=== PATIENT | male | born 1955 | race Caucasian/White ===

== ENCOUNTER 2018-08-26 12:21 | Inpatient (IN) | payer MEDICARE, OTHER ==
[~2018-08-26 12:21] MED LIST: Prevnar 13-Val Conj/PF 0.5 ML SYRINGE IM ONE
[2018-08-26 13:21] LABS: #Basophils 0.1 thou/uL (0.0-0.2); #Eosinphils 0.1 thou/uL (0.0-0.7); #Lymphocytes 1.1 thou/uL (1.20-3.40); #Monocytes 0.8 thou/uL (0.11-0.59); #Neutrophils 8.7 thou/uL (1.40-6.50); %Basophils 0.7 % (0.0-1.0); %Eosinophils 0.8 % (0.0-10.0); %Lymphocytes 10.1 % (21.0-51.0); %Monocytes 7.3 % (0.0-10.0); %Neutrophils 81.1 % (42.0-75.0); Hemoglobin 15.4 g/dL (14.0-18.0); Mean Corpuscular Hemoglobin 31.7 pg (27.0-31.0); Mean Corpuscular Volume 99.1 fL (78.0-98.0); Platelet Count 161 thou/uL (130-400); RBC Distribution Width 12.6 % (11.5-14.5); Red Blood Cell (RBC) Count 4.86 mill/uL (4.70-6.10); White Blood Cell (WBC) Count 10.8 thou/uL (4.8-10.8)
--- NOTE | 2018-08-26 13:43 | RAD ---
PORTABLE UPRIGHT FRONTAL CHEST RADIOGRAPH: Date: 08-26-18 History: Tachycardia. Atrial fibrillation. Chest pressure. FINDINGS: There is mild pulmonary vascular prominence. Cardiac silhouette is enlarged which could signify cardi omegaly or magnification. No pneumothorax, lobar consolidation, or alveolar edema. IMPRESSION: Prominent cardiac silhouette with no focal consolidation or alveolar edema. POS: [facility]
[2018-08-26 13:50] LABS: AST (SGOT) 45 U/L (5-34); Albumin 3.9 g/dL (3.4-4.8); Alkaline Phosphatase 56 U/L (40-150); Anion Gap 16 mmol/L (10-20); BUN (Urea Nitrogen) 18 mg/dL (8.4-25.7); Bilirubin, Total 1.2 mg/dL (0.2-1.2); Calc. Creatinine Clearance 0 mL/min (70-130); Calcium 8.9 mg/dL (7.8-10.44); Carbon Dioxide 17 mmol/L (23-31); Chloride 109 mmol/L (98-107); Estimated GFR-MDRD 64; Globulin 2.9 g/dL (2.4-3.5); Glucose 94 mg/dL (80-115); Protein, Total 6.8 g/dL (5.8-8.1); Sodium 137 mmol/L (136-145)
[2018-08-26] MEDS ORDERED: Furosemide 40 MG/4 ML VIAL ONE (13:57)
[2018-08-26 14:11] LABS: ALT (SGPT) 36 U/L (8-55)
[2018-08-26 17:13] LABS: Troponin I 0.031 ng/mL (< 0.028)
[2018-08-26] MEDS ORDERED: Diltiazem 125 MG in Sodium Chloride 0.9% 100 ML IVPB SCH (18:15)
[2018-08-26] MEDS ORDERED: Acetaminophen 325 MG TAB PO PRN (18:43)
[2018-08-26] MEDS ORDERED: Ondansetron PF 4 MG/2 ML Vial IVP PRN (18:43)
[2018-08-26] MEDS ORDERED: Ondansetron ODT 4 MG TAB PO PRN (18:43)
[2018-08-26 19:08] VITALS: BMI 33.4
[2018-08-26] MEDS: Famotidine 20 MG TAB PO SCH (20:39)
[2018-08-26] MEDS: Sotalol HCl 80 MG TAB PO SCH (20:39)
[2018-08-26] MEDS: Apixaban 5 MG TAB PO SCH (20:39)
--- NOTE | 2018-08-27 00:35 | HP ---
PRIMARY CARE PHYSICIAN: Dr. Barahona. CHIEF COMPLAINT: Atrial fibrillation with RVR, palpitations. HISTORY OF PRESENT ILLNESS: Mr. Rosario is a pleasant 63-year-old male with past medical history of chronic atrial fibrillation, CHF, hypertension, and hyperlipidemia, who had presented to [facility] earlier today with some complaints of palpitations that have been going on over the last 2 months. He states symptoms worsened over the last 2 to 3 weeks once he had experienced more of an upper respiratory infection like symptoms, which included cough and shortness of breath. His shortness of breath worsened with exercise and activity that had resolved with rest. He states that he sees a interactive media designer from , he states he has had 3 cardioversions in the past that has seemed successful, but then he would later revert to atrial fibrillation. 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 Currently, the patient denies any chest pain, shortness of breath, abdominal pain, nausea, or vomiting. No headache or dizziness. He was noticed with rates in the 160s on the monitor. In the emergency department, he was given 20 mg IV diltiazem, 40 mg IV Lasix, and a nebulizer DuoNeb treatment. His heart rate continued to rise in the 150s to 160s. It was at that time that it was determined the patient would be admitted under observation. Cardiology Services will be consulted. He will receive another dose of IV diltiazem and placed on diltiazem drip. REVIEW OF SYSTEMS: All other systems reviewed and found to be negative unless mentioned in the HPI. PAST MEDICAL HISTORY: Chronic atrial fibrillation, CHF, hypertension, and hyperlipidemia. PAST SURGICAL HISTORY: Left knee surgery, inguinal hernia repair, left shoulder surgery for rotator cuff tear repair. PSYCHIATRIC HISTORY: Denies any psychiatric history at this time. SOCIAL HISTORY: The patient states that he drinks socially, however, has not had a drink in over 2 weeks. He denies any tobacco or illicit drug use. KNOWN ALLERGIES: Codeine. CURRENT HOME MEDICATIONS: 1. Lisinopril 40 mg oral once daily. 2. Eliquis 5 mg twice daily. 3. Aspirin 81 mg daily. 4. Lasix 40 mg once daily. 5. Sotalol 80 mg twice daily. PHYSICAL EXAMINATION: VITAL SIGNS: Blood pressure 135/76, pulse 120, respirations 18, temperature 98.9 degrees Fahrenheit, O2 saturations 96% on room air. GENERAL: The patient is awake, alert, and oriented x3. No acute distress noted. HEENT: Atraumatic and normocephalic. Pupils are round and reactive to light. Extraocular muscles are intact. Moist mucous membranes noted. NECK: Soft and supple. No JVD noted. CARDIOVASCULAR: Positive S1 and S2. Irregularly irregular. No murmur auscultated. RESPIRATORY: Clear to auscultation bilaterally. No wheezes, rales, or rhonchi. ABDOMEN: Soft and nontender. Bowel sounds present. MUSCULOSKELETAL: Strength 5+ bilaterally in upper and lower extremities. Moves all extremities equal. No edema noted. NEUROLOGIC: Cranial nerves 2 through 12 grossly intact. No focal deficits noted. Strength 5+ bilaterally. Gait, not assessed. PSYCHIATRIC: Good mood and affect. LABORATORY DATA: WBC 10.8, RBC 4.86, hemoglobin 15.4, platelet 161. Sodium 137, potassium 5.0, anion gap 16, creatinine 1.15, estimated GFR 64. Troponin 0.024, 0.031. BNP 1527.9. DIAGNOSTIC IMAGING: Portable chest x-ray showed prominent cardiac silhouette with no focal consolidation or alveolar edema. ASSESSMENT AND PLAN: 1. Atrial fibrillation with rapid ventricular response. The patient will be given second dose of IV diltiazem 35 mg and he will be placed on diltiazem drip set at 10 mg an hour, Cardiology Services will be consulted for further evaluation. He will remain on his home medications at this time and also remain on telemetry. 2. History of congestive heart failure, this is unknown as if this is systolic or diastolic heart failure, he will remain on home medications at this time and we will attempt to seek obtaining his records from . He may require further diagnostic testing including echocardiogram during this hospital visit. 3. Hypertension, currently stable at this time. He will remain on his home regimen. 4. Hyperlipidemia, currently stable. We will check lipid panel in the morning. 5. Deep venous thrombosis and gastrointestinal prophylaxis. 6. Code status, full code. DISPOSITION: Pending further workup and clinical findings. Job ID: [id number]
[2018-08-27 05:35] LABS: #Eosinphils 0.2 thou/uL (0.0-0.7); #Lymphocytes 1.3 thou/uL (1.20-3.40); #Neutrophils 6.4 thou/uL (1.40-6.50); %Basophils 0.3 % (0.0-1.0); %Eosinophils 2.1 % (0.0-10.0); %Lymphocytes 14.5 % (21.0-51.0); %Monocytes 11.3 % (0.0-10.0); %Neutrophils 71.8 % (42.0-75.0); Hemoglobin 14.8 g/dL (14.0-18.0); Mean Corpuscular HGB CONC 32.4 g/dL (32.0-36.0); Mean Corpuscular Hemoglobin 31.9 pg (27.0-31.0); Mean Corpuscular Volume 98.2 fL (78.0-98.0); Mean Platelet Volume 9.5 fL (7.4-10.4); Platelet Count 161 thou/uL (130-400); RBC Distribution Width 12.7 % (11.5-14.5); Red Blood Cell (RBC) Count 4.66 mill/uL (4.70-6.10); White Blood Cell (WBC) Count 8.9 thou/uL (4.8-10.8)
[2018-08-27 05:56] LABS: Anion Gap 14 mmol/L (10-20); BUN (Urea Nitrogen) 19 mg/dL (8.4-25.7); Calc. Creatinine Clearance 80 mL/min (70-130); Calcium 8.9 mg/dL (7.8-10.44); Carbon Dioxide 23 mmol/L (23-31); Chloride 105 mmol/L (98-107); Estimated GFR-MDRD 55; Glucose 110 mg/dL (80-115); Potassium 3.9 mmol/L (3.5-5.1); Sodium 138 mmol/L (136-145)
[2018-08-27] MEDS ORDERED: Furosemide 40 MG TAB PO SCH (07:30)
[2018-08-27] MEDS: Apixaban 5 MG TAB PO SCH ×2 (07:58→20:10)
[2018-08-27] MEDS: Sotalol HCl 80 MG TAB PO SCH (07:58)
[2018-08-27] MEDS: Famotidine 20 MG TAB PO SCH ×2 (07:59→20:11)
[2018-08-27] MEDS ORDERED: Aspirin 81 mg Enteric Coated Tablet PO SCH (09:00)
--- NOTE | 2018-08-27 10:37 | PDOC.PN ---
- Subjective Encounter Start Date: 08/27/18 Encounter Start Time: 09:00 Subjective: Reports cough, wheezing, reports cough x1 month after burning brush -: Denies chest pain or palpations -: Patient examined this am - Objective Resuscitation Status - Order Detail: 08/26/18 18:43 Resuscitation Status Routine Co-Sign Provider: Resuscitation Status: FULL: Full Resuscitation Vital Signs & Weight: Vital Signs (12 hours) Temp Pulse Resp BP BP Pulse Ox 08/27/18 08:05 98.1 F 98 16 121/83 93 L 08/27/18 04:04 98.3 F 83 22 H 119/72 92 L 08/26/18 23:18 70 20 97/65 95 08/26/18 23:13 70 20 98/61 97 08/26/18 23:10 74 20 88/56 L Weight Weight 99.819 kg I&O: 08/26/18 08/27/18 08/28/18 06:59 06:59 06:59 Intake Total 850 Balance 850 Result Diagrams: 08/27/18 05:15 08/27/18 05:15 Phys Exam - Physical Examination HEENT: PERRLA, moist MMs Neck: no nodes, no JVD Respiratory: wheezing present diffuse wheezing and rhonchi noted on auscultation Cardiovascular: irregular Gastrointestinal: soft, non-tender Musculoskeletal: pulses present Neurological: non-focal, normal sensation, moves all 4 limbs Lymphatic: no nodes Psychiatric: normal affect, A&O x 3 Skin: no rash, normal turgor, cap refill <2 seconds Dx/Plan (1) Atrial fibrillation with RVR Code(s): I48.91 - UNSPECIFIED ATRIAL FIBRILLATION Status: Acute (2) Hypertension Code(s): I10 - ESSENTIAL (PRIMARY) HYPERTENSION Status: Chronic (3) Hyperlipemia Code(s): E78.5 - HYPERLIPIDEMIA, UNSPECIFIED Status: Chronic (4) Heart failure Code(s): I50.9 - HEART FAILURE, UNSPECIFIED Status: Chronic (5) Wheezing on auscultation Code(s): R06.2 - WHEEZING Status: Acute - Plan cont current plan of care, respiratory therapy Patient with Afib, converted to controlled rate, drip stopped -: Duonebs ordered -: Cardiology consulted, Echo pending, -: Will recheck labs in AM, monitor breathing and VS * . Review of Systems - Review of Systems Gastrointestinal: Nausea, Vomiting, Abdominal Pain, Diarrhea, Melena - Medications/Allergies Allergies/Adverse Reactions: Allergies Allergy/AdvReac Type Severity Reaction Status Date / Time codeine Allergy Hives Verified 08/26/18 20:11 Medications: Current Medications Acetaminophen (Tylenol) 650 mg PO Q4H PRN PRN Reason: Headache/Fever/Mild Pain (1-3) Albuterol/Ipratropium (Duoneb) 3 ml NEB D4TC-OS PRN PRN Reason: SOB &/or Wheezing Albuterol/Ipratropium (Duoneb) 3 ml NEB [id number] [facility] Last Admin: 08/27/18 10:48 Dose: 3 ml Apixaban (Eliquis) 5 mg PO BID [facility] Last Admin: 08/27/18 07:58 Dose: 5 mg Aspirin (Ecotrin) 81 mg PO DAILY [facility] Last Admin: 08/27/18 07:58 Dose: 81 mg Famotidine (Pepcid) 20 mg PO BID [facility] Last Admin: 08/27/18 07:59 Dose: 20 mg Furosemide (Lasix) 40 mg PO DAILY-AC [facility] Last Admin: 08/27/18 07:58 Dose: 40 mg Diltiazem HCl 125 mg/ Sodium (Chloride) 125 mls @ 10 mls/hr IVPB INF [facility]; Protocol Last Admin: 08/26/18 20:05 Dose: 125 mls Ondansetron HCl (Zofran Odt) 4 mg PO Q6H PRN PRN Reason: Nausea/Vomiting Ondansetron HCl (Zofran) 4 mg IVP Q6H PRN PRN Reason: Nausea/Vomiting Sodium Chloride (Flush - Normal Saline) 10 ml IVF Q12HR [facility] Last Admin: 08/27/18 08:00 Dose: 10 ml Sodium Chloride (Flush - Normal Saline) 10 ml IVF PRN PRN PRN Reason: Saline Flush Sotalol HCl (Betapace) 80 mg PO BID [facility] Last Admin: 08/27/18 07:58 Dose: 80 mg
[2018-08-27] MEDS ORDERED: Furosemide 40 MG/4 ML VIAL SLOW IVP SCH ×2 (11:45→16:15)
[2018-08-27] MEDS ORDERED: PROPOFOL 20 ML ONE (13:01)
[2018-08-27] MEDS ORDERED: Spironolactone 25 MG TAB PO SCH (14:30)
--- NOTE | 2018-08-27 14:30 | PDOC.EVN ---
Event Note - Event Note Event Note: patient seen by DAPHNE Galvan with AF witth RVR, currently being seen by cardiology
[2018-08-27] MEDS ORDERED: Digoxin 0.5 MG/2 ML AMP ONE (15:03)
--- NOTE | 2018-08-27 16:12 | ECHO ---
63-year-old gentleman with paroxysmal atrial fibrillation. DESCRIPTION OF PROCEDURE: The patient was taken to the PACU. The patient was sedated by anesthesiology. A transesophageal probe was placed into the distal esophagus and stomach. Echocardiographic images were obtained. The transesophageal probe was removed. FINDINGS: 1. Severe decrease in left ventricular systolic function. 2. Biatrial enlargement. 3. The left ventricle is moderately dilated. 4. Mild mitral regurgitation. 5. Mild tricuspid regurgitation. 6. Pre- thrombus is noted in the left atrial appendage. 7. Atherosclerotic debris in the descending aorta. IMPRESSION: Pre-thrombus in the left atrial appendage. MTDD
[2018-08-27] MEDS ORDERED: Potassium Chloride 20 MEQ TAB PO SCH (16:15)
[2018-08-27] MEDS ORDERED: PROPOFOL 200 MG/20 ML VIAL ONE (16:23)
[2018-08-27] MEDS: Digoxin 0.5 MG/2 ML AMP SLOW IVP SCH ×2 (16:26→17:41)
--- NOTE | 2018-08-27 17:31 | CON ---
DATE OF CONSULTATION: HISTORY OF PRESENT ILLNESS: The patient is a pleasant 63-year-old gentleman with a history of atrial fibrillation, who presented with increasing dyspnea. The patient has a long history of atrial fibrillation. He states that he has previously undergone three electrical cardioversions. He has been on multiple different antiarrhythmic medications. The patient also states that approximately a few years ago, he underwent cardiac catheterization, and was found to have normal coronary arteries. The patient states that he recently has been under a lot of stress. He has been having increasing dyspnea. He denies having any chest discomfort. PAST MEDICAL HISTORY: 1. Paroxysmal atrial fibrillation 2. Hypertension. 3. Hyperlipidemia. PAST SURGICAL HISTORY: Shoulder surgery, knee surgery, and hernia surgery. surgery. SOCIAL HISTORY: The patient consumes excessive amounts of alcohol. Nonsmoker. ALLERGIES: CODEINE. MEDICATIONS: 1. Betapace 80 b.i.d. 2. Lasix 40 daily. 3. Aspirin 81 daily. 4. Eliquis 5 mg b.i.d. 5. Lisinopril 40 daily. REVIEW OF SYSTEMS: Ten-point system otherwise unremarkable. No history of easy bruising or bleeding bright red blood per rectum. PHYSICAL EXAMINATION: GENERAL: This is a well-developed gentleman in no acute distress. VITAL SIGNS: Blood pressure 121/83. NECK: No jugular venous distention. LUNGS: Diffuse wheezes throughout both lung phillips. HEART: Irregular rate and rhythm. Normal S1 and S2. No murmurs. ABDOMEN: Distended. EXTREMITIES: Showed no edema. VASCULAR: Radial pulses are 2+. NEUROLOGIC: Nonfocal. LABORATORY RESULTS: Sodium 138, potassium 3.9, chloride 105, bicarbonate 23, BUN 19, creatinine 1.3, glucose is 55. Troponin 0.04. White blood cell count 8.9, hemoglobin 14.8, hematocrit 45.7, and platelets were 161. His EKG revealed atrial fibrillation with a rapid ventricular response and poor R-wave progression. IMPRESSION: 1. Paroxysmal atrial fibrillation. 2. Ethanol abuse. 3. History of normal coronary arteries. 4. Obesity. This gentleman presents with recurrent atrial fibrillation. I would recommend the patient undergo a FELIPE cardioversion to convert back to normal sinus rhythm. The patient apparently has been on multiple antiarrhythmic drugs and has not been able to maintain sinus rhythm. We will recommend EP consultation for possible evaluation for outpatient ablation. We will follow this patient with you through his hospitalization. Job ID: [id number] DIANNE
[2018-08-27] MEDS ORDERED: Digoxin 0.25 MG TAB PO SCH (19:30)
[2018-08-27] MEDS ORDERED: Sacubitril 24.5 MG/Valsartan 25.5 MG TABLET PO SCH (21:00)
[2018-08-28 05:21] LABS: #Eosinphils 0.3 thou/uL (0.0-0.7); #Lymphocytes 0.9 thou/uL (1.20-3.40); #Monocytes 0.9 thou/uL (0.11-0.59); #Neutrophils 4.4 thou/uL (1.40-6.50); %Basophils 0.4 % (0.0-1.0); %Eosinophils 4.7 % (0.0-10.0); %Lymphocytes 13.8 % (21.0-51.0); %Monocytes 13.8 % (0.0-10.0); %Neutrophils 67.2 % (42.0-75.0); Hemoglobin 16.9 g/dL (14.0-18.0); Mean Corpuscular HGB CONC 32.2 g/dL (32.0-36.0); Mean Corpuscular Hemoglobin 31.6 pg (27.0-31.0); Mean Corpuscular Volume 98.2 fL (78.0-98.0); Mean Platelet Volume 8.4 fL (7.4-10.4); Platelet Count 148 thou/uL (130-400); RBC Distribution Width 12.5 % (11.5-14.5); Red Blood Cell (RBC) Count 5.34 mill/uL (4.70-6.10); White Blood Cell (WBC) Count 6.6 thou/uL (4.8-10.8)
[2018-08-28] MEDS: Furosemide 40 MG/4 ML VIAL SLOW IVP SCH ×2 (05:48→15:27)
[2018-08-28 05:49] LABS: Anion Gap 12 mmol/L (10-20); BUN (Urea Nitrogen) 16 mg/dL (8.4-25.7); Calc. Creatinine Clearance 111 mL/min (70-130); Calcium 8.5 mg/dL (7.8-10.44); Carbon Dioxide 25 mmol/L (23-31); Chloride 104 mmol/L (98-107); Estimated GFR-MDRD 84; Glucose 99 mg/dL (80-115); Potassium 4.2 mmol/L (3.5-5.1); Sodium 137 mmol/L (136-145)
[2018-08-28] MEDS ORDERED: Sacubitril 24.5 MG/Valsartan 25.5 MG TABLET PO SCH ×3 (08:50→09:30)
[2018-08-28] MEDS: Famotidine 20 MG TAB PO SCH ×2 (10:18→21:18)
[2018-08-28] MEDS: Spironolactone 25 MG TAB PO SCH (10:18)
[2018-08-28] MEDS: Sacubitril 49 MG/Valsartan 51 MG TABLET PO SCH ×2 (10:18→21:20)
[2018-08-28] MEDS: Digoxin 0.25 MG TAB PO SCH (10:18)
[2018-08-28] MEDS: Potassium Chloride 20 MEQ TAB PO SCH (10:18)
[2018-08-28] MEDS: Apixaban 5 MG TAB PO SCH ×2 (10:18→21:18)
[2018-08-28 10:48] LABS: Hemoglobin 18.4 g/dL (14.0-18.0); Platelet Count 177 thou/uL (130-400)
--- NOTE | 2018-08-28 11:49 | CON ---
DATE OF CONSULTATION: REASON FOR CONSULTATION: Atrial fibrillation. HISTORY OF PRESENT ILLNESS: A 63-year-old gentleman with a known history of atrial fibrillation. He is followed by Dr. Anglin, although has not been since 2016. There is some report that he may have had an ablation; however, we are unable to confirm this. The patient has a history of atrial fibrillation and has been treated with antiarrhythmic drug therapy. He has last been on sotalol. He reports that he has been in atrial fibrillation now for several months. It is not entirely clear a compliant use with his blood thinner, also there are some significant questions about his compliance. He came to the hospital with dyspnea and increasing dyspnea and was found to be in atrial fibrillation with rapid ventricular response. His sotalol was reinitiated and he was set to have a transesophageal ultrasound as well as a cardioversion; however, left atrial thrombus was detected on FELIPE and cardioversion was aborted. He is therefore rate controlled and anticoagulated. PAST MEDICAL HISTORY: Significant for atrial fibrillation, hypertension, hyperlipidemia. PAST SURGICAL HISTORY: He has had shoulder surgery, knee surgery, hernia surgery. SOCIAL HISTORY: He consumes excessive amounts of alcohol. He is nonsmoker. ALLERGIES: ALLERGIC TO CODEINE. MEDICATIONS ON ADMISSION: Include: 1. Betapace. 2. Lasix. 3. Aspirin. 4. Eliquis. 5. Lisinopril. REVIEW OF SYSTEMS: Comprehensive review of systems otherwise unremarkable, particularly no fever, chills, nausea, vomiting, diarrhea, blood in the urine, blood in stool, abdominal discomfort, chest discomfort, ataxia, depression, anxiety, change in hearing, changes in vision or smell. PHYSICAL EXAMINATION: GENERAL: He is comfortable, in no acute distress. VITAL SIGNS: Blood pressure 139/84, heart rate is 83 and irregular. NECK: Reveals no JVD. HEART: Irregularly irregular. Normal S1 and S2. LUNGS: Clear to auscultation. ABDOMEN: Soft, nontender. EXTREMITIES: Reveal no clubbing, cyanosis, or edema. LABORATORY DATA: A 12-lead ECG done on 26 August shows him to be in atrial fibrillation with ventricular rate of 116 beats per minute with nonspecific ST and T wave abnormalities. IMPRESSION: 1. Persistent atrial fibrillation. 2. Left atrial thrombus. 3. Medical noncompliance. RECOMMENDATIONS: At this point, because Mr. Rosario has left atrial thrombus. We were very limited in what we can do for him. At this point, re-initiation of anticoagulation and treatment with rate control agents would be the best. We will have him follow up with physiology for hopefully repeat FELIPE in about 1 to 2 months to re-evaluate the thrombus. I discussed this with Mr. Rosario and suggested strongly that he not skip or miss any doses and suggested if he does not have medications, we will find solution for that. Ultimately, once the left atrial thrombus has resolved, reasonable options would include radiofrequency ablation for atrial fibrillation and potentially even a Watchman device for left atrial appendage occlusion to prevent thrombus formation. We will arrange for followup in the near future. Many thanks for the opportunity to participate in the care of this patient. Please do not hesitate to contact me for any questions. Job ID: [id number]
--- NOTE | 2018-08-28 12:48 | PQF ---
CLINICAL DOCUMENTATION IMPROVEMENT CLARIFICATION FORM: ICD-10 Updated PLEASE DO AN ADDENDUM TO THE PROGRESS NOTE WITH ANY DOCUMENTATION UPDATES OR ADDITIONS AND CARRY THROUGH TO DC SUMMARY. THANK YOU. DATE: 08/28/18 ATTN: DR. VENTURA Please exercise your independent, professional judgment in responding to the clarification form. Clinical indicators are provided on the bottom of this form for your review Please check appropriate box(s): HEART FAILURE: A. TYPE: [ x ] Systolic / HFrEF [ ] Diastolic / HFpEF [ ] Combined Systolic / Diastolic B. ACUITY [ ] Acute [ x ] Acute on Chronic [ ] Chronic [ ] Other diagnosis [ ] Unable to determine In addition, please specify: Present on Admission (POA): [ x ] Yes [ ] No [ ] Unable to determine For continuity of documentation, please document condition throughout progress notes and discharge summary. Thank You. CLINICAL INDICATORS - SIGNS / SYMPTOMS / LABS PROGRESS NOTE : "HEART FAILURE" PULSE 135 RR 26 BNP 1527.9 ECHO REPORT: "SEVERE DECREASE I LEFT VENTRICULAR SYSTOLIC FUNCTION" "BILATERAL ENLARGEMENT" "THE LEFT VENTRICLE IS MODERATELY DILATED" "MILD MITRAL REGURGITATION" "MILD TRICUSPID REGURGITATION" "FREE THROMBUS IS NOTED IN THE LEFT ATRIAL APPENDAGE" "ATHEROSCLEROTIC DEBRIS IN THE DESCENDING AORTA" RISKS: H/O CHF AFIB TREATMENT: IV LASIX (ER-PRESENT) COREG (STARTED 08/28) ENTRESTO (08/27-PRESENT) CARDIAC MONITORING ECHOCARDIOGRAM (This form is maintained as a part of the permanent medical record) 2014 [email or web address]. All Rights Reserved [email or web address] Office: [phone] [facility] HOSPITALVirgil
[2018-08-28] MEDS: Carvedilol 3.125 MG TAB PO SCH (17:39)
--- NOTE | 2018-08-28 23:06 | PDOC.PN ---
- Subjective Encounter Start Date: 08/28/18 Encounter Start Time: 08:40 Feels ok. Eager to go home. - Objective Resuscitation Status - Order Detail: 08/26/18 18:43 Resuscitation Status Routine Co-Sign Provider: Resuscitation Status: FULL: Full Resuscitation Vital Signs & Weight: Vital Signs (12 hours) Temp Pulse Resp BP Pulse Ox 08/28/18 22:48 90 14 94 L 08/28/18 21:09 95 08/28/18 19:19 97.9 F 91 20 127/96 H 95 08/28/18 18:49 51 L 16 95 08/28/18 16:14 72 20 08/28/18 15:25 97.5 F L 74 20 146/101 H 95 08/28/18 11:37 97.2 F L 97 20 151/85 H 93 L 08/28/18 11:18 88 24 H Weight Weight 213 lb 11.2 oz I&O: 08/27/18 08/28/18 08/29/18 06:59 06:59 06:59 Intake Total 850 1450 500 Output Total 3920 2350 Balance 850 -2470 -1850 Result Diagrams: 08/28/18 10:26 08/28/18 10:26 Phys Exam - Physical Examination Constitutional: NAD Respiratory: no wheezing, no rales, no rhonchi Cardiovascular: no significant murmur, irregular Gastrointestinal: soft, non-tender, no distention, positive bowel sounds Musculoskeletal: no edema Dx/Plan (1) Atrial fibrillation with RVR Code(s): I48.91 - UNSPECIFIED ATRIAL FIBRILLATION Status: Acute (2) Heart failure Code(s): I50.9 - HEART FAILURE, UNSPECIFIED Status: Chronic (3) Hyperlipemia Code(s): E78.5 - HYPERLIPIDEMIA, UNSPECIFIED Status: Chronic (4) Hypertension Code(s): I10 - ESSENTIAL (PRIMARY) HYPERTENSION Status: Chronic - Plan * Reviewed record. FELIPE showed a left atrial thrombus. * Discussed with VIJAY HOPKINS with discharge on anticoagulation with follow up in six weeks. * FELIPE revealed depressed LVF. Apparently the EF is around 20% and a LifeVest has been recommended.
[2018-08-29] MEDS: Furosemide 40 MG/4 ML VIAL SLOW IVP SCH ×2 (06:05→13:49)
[2018-08-29 07:28] VITALS: TEMP 98
[2018-08-29] MEDS: Digoxin 0.25 MG TAB PO SCH (08:17)
[2018-08-29] MEDS: Sacubitril 49 MG/Valsartan 51 MG TABLET PO SCH (08:17)
[2018-08-29] MEDS: Apixaban 5 MG TAB PO SCH (08:17)
[2018-08-29] MEDS: Spironolactone 25 MG TAB PO SCH (08:18)
[2018-08-29] MEDS: Carvedilol 3.125 MG TAB PO SCH (08:18)
[2018-08-29] MEDS: Famotidine 20 MG TAB PO SCH (08:18)
[2018-08-29] MEDS: Potassium Chloride 20 MEQ TAB PO SCH (08:18)
[2018-08-29 11:36] VITALS: BP 144/69
--- NOTE | 2018-08-29 16:07 | DIS ---
DATE OF ADMISSION: 08/27/2018 DATE OF DISCHARGE: 08/29/2018 DISCHARGE DISPOSITION: Home. FOLLOWUP: 1. Follow up with primary care physician, Dr. Barahona in 1 week. 2. Follow up with Dr. Guanako Saucedo as well as Electrophysiology, Dr. Moise in 1 to 2 weeks. ALLERGIES: THE PATIENT IS ALLERGIC TO CODEINE. BASIC METABOLIC PROFILE IN 1 TO 2 WEEKS IS RECOMMENDED. PRIMARY CARE PHYSICIAN ADVISED TO FOLLOW. DIGOXIN LEVEL IN 2 WEEKS. THE PATIENT WAS SEEN AND EXAMINED ON THE DAY OF DISCHARGE. DENIES ANY NEW COMPLAINTS. NO CHEST PAIN, SHORTNESS OF BREATH, OR PALPITATIONS REPORTED. DISCHARGE MEDICATIONS: 1. Aspirin 81 mg daily. 2. Eliquis 5 mg b.i.d. 3. Carvedilol 3.125 mg b.i.d. 4. Digoxin 0.25 mg b.i.d. 5. Lasix 40 mg daily as needed for weight gain more than 2 pounds. 6. Entresto 49/51 one tablet b.i.d. 7. Aldactone 25 mg daily. 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 Guanako Saucedo and Electrophysiology service. BRIEF HOSPITAL COURSE: The patient is a 63-year-old male, who presented to the emergency room with palpitations. His workup was consistent with atrial fibrillation with rapid ventricular response. He was started on Cardizem drip. Anticoagulation was also continued. The patient was seen by Electrophysiology as well as Cardiology Service. A transesophageal echocardiogram was done that showed pre-thrombus noted in the left atrial appendage. For this reason, cardioversion was not performed. He will continue anticoagulation with Eliquis. Digoxin, Entresto, and Aldactone were added to his regimen. He was also placed on IV diuretics, which has been changed to p.r.n. He appears stable for discharge. He understands the risks associated with anticoagulation. He was also advised to be compliant with all of his medications. FINAL DIAGNOSES: 1. Atrial fibrillation with rapid ventricular response. 2. Acute on chronic systolic heart failure exacerbation secondary to #1. ACC stage C. 3. Elevated troponin secondary to demand ischemia. 4. Obesity with a BMI of 32.5. 5. Left atrial thrombus, on anticoagulation. 6. Medication noncompliance. 7. Codeine allergy. 8. Hypertension. 9. Hyperlipidemia. 10. Chronic kidney disease, stage 2. PLAN: Plan of care was discussed with the patient in detail. He stated understanding. Job ID: [id number] MTDD
== END 2018-08-29 15:15 | disposition home or self-care (01) | DRG 308 ==
LOC: ERS 12:21 → 2SW 14:23 → OBSVTOIN 08-27 10:07 → 2NO 08-28 20:57
PROVIDERS: ADMIT Internal Medicine; ATTEND Internal Medicine
PROC: B24BZZ4 Ultrasonography of Heart with Aorta, Transesophageal (ICD-10-PCS; principal; 2018-08-27)
DX: I48.1 Persistent atrial fibrillation (principal); I50.23 Acute on chronic systolic (congestive) heart failure; I13.0 Hypertensive heart and chronic kidney disease with heart failure and stage 1 through stage 4 chronic kidney disease, or unspecified chronic kidney disease; I24.8 Other forms of acute ischemic heart disease; I51.3 Intracardiac thrombosis, not elsewhere classified; N18.2 Chronic kidney disease, stage 2 (mild); E78.5 Hyperlipidemia, unspecified; R06.2 Wheezing; E66.9 Obesity, unspecified; Z91.14 Patient's other noncompliance with medication regimen; Z79.01 Long term (current) use of anticoagulants; Z79.82 Long term (current) use of aspirin; Z88.6 Allergy status to analgesic agent; Z68.32 Body mass index [BMI] 32.0-32.9, adult
CPT/HCPCS: 36415; 71045; 80048; 80053; 83880; 84484; 85025; 92960; 93005; 93312; 94640; 96374; 96375; J1160; J1940; J2704; J3490; J7050; J7620

== ENCOUNTER 2019-03-22 11:53 | Inpatient (IN) | payer MEDICARE, OTHER ==
--- NOTE | 2019-03-22 12:18 | RAD ---
PA AND LATERAL CHEST: Date: 03/22/19 HISTORY: Atrial fibrillation. COMPARISON: 08/26/18 exam. FINDINGS: Heart size is enlarged with atherosclerotic changes of aorta. Lungs are clear of infiltrates. Old rig ht rib fractures seen. IMPRESSION: Cardiomegaly. No signs of failure. POS: [facility]
[2019-03-22 12:51] LABS: #Basophils 0.1 thou/uL (0.0-0.2); #Lymphocytes 1.6 thou/uL (1.20-3.40); #Monocytes 0.9 thou/uL (0.11-0.59); #Neutrophils 7.1 thou/uL (1.40-6.50); %Basophils 0.5 % (0.0-1.0); %Eosinophils 0.3 % (0.0-10.0); %Lymphocytes 16.4 % (21.0-51.0); %Monocytes 9.5 % (0.0-10.0); %Neutrophils 73.3 % (42.0-75.0); Hemoglobin 16.8 g/dL (14.0-18.0); Mean Corpuscular HGB CONC 32.9 g/dL (32.0-36.0); Mean Corpuscular Volume 97.3 fL (78.0-98.0); Mean Platelet Volume 8.4 fL (7.4-10.4); Platelet Count 205 thou/uL (130-400); RBC Distribution Width 12.9 % (11.5-14.5); Red Blood Cell (RBC) Count 5.25 mill/uL (4.70-6.10); White Blood Cell (WBC) Count 9.7 thou/uL (4.8-10.8)
[2019-03-22] MEDS ORDERED: Diltiazem 125 MG/25 ML ONE (13:09)
[2019-03-22 13:18] LABS: ALT (SGPT) 58 U/L (8-55); AST (SGOT) 35 U/L (5-34); Albumin 4.2 g/dL (3.4-4.8); Alkaline Phosphatase 73 U/L (40-150); Anion Gap 15 mmol/L (10-20); BUN (Urea Nitrogen) 20 mg/dL (8.4-25.7); Bilirubin, Total 1.9 mg/dL (0.2-1.2); CK (CPK) 87 U/L (30-200); Calc. Creatinine Clearance 0 mL/min (70-130); Calcium 9.7 mg/dL (7.8-10.44); Carbon Dioxide 24 mmol/L (23-31); Chloride 104 mmol/L (98-107); Estimated GFR-MDRD 51; Globulin 1.9 g/dL (2.4-3.5); Glucose 109 mg/dL (80-115); Potassium 4.7 mmol/L (3.5-5.1); Protein, Total 6.1 g/dL (5.8-8.1); Sodium 138 mmol/L (136-145)
[2019-03-22] MEDS ORDERED: Diltiazem HCl 125 MG, Admixture Fee 1 EACH in Sodium Chloride 0.9% 100 ML IVPB SCH (13:30)
[2019-03-22] MEDS ORDERED: Furosemide 40 MG/4 ML VIAL ONE (14:03)
[2019-03-22] MEDS ORDERED: Aspirin Chewable 81 MG TAB ONE (14:52)
[2019-03-22 15:51] LABS: Troponin I 0.055 ng/mL (< 0.028)
[2019-03-22 18:32] LABS: Troponin I 0.044 ng/mL (< 0.028)
[2019-03-22] MEDS ORDERED: Aspirin 325 MG TAB PO SCH (21:00)
[2019-03-22 21:05] VITALS: BMI 33.5
[2019-03-22] MEDS ORDERED: Ondansetron ODT 4 MG TAB PO PRN (21:16)
[2019-03-22] MEDS ORDERED: hydrALAZINE 20 MG/ML VIAL SLOW IVP PRN (21:16)
[2019-03-22] MEDS ORDERED: Ondansetron PF 4 MG/2 ML Vial IVP PRN (21:16)
[2019-03-22] MEDS ORDERED: Furosemide 40 MG/4 ML VIAL SLOW IVP SCH (21:30)
[2019-03-22] MEDS ORDERED: Apixaban 5 MG TAB PO SCH (21:45)
[2019-03-22] MEDS ORDERED: Famotidine 20 MG TAB PO SCH (21:45)
[2019-03-22] MEDS: Acetaminophen 500 MG TAB PO PRN (21:45)
[2019-03-22] MEDS ORDERED: Sacubitril 49 MG/Valsartan 51 MG TABLET PO SCH (21:45)
[2019-03-22] MEDS: Diltiazem 125 MG in Sodium Chloride 0.9% 100 ML IVPB SCH (22:10)
--- NOTE | 2019-03-23 02:30 | HP ---
PRIMARY CARE PROVIDER: Dr. Michele Barahona of the [facility]. CHIEF COMPLAINT: General weakness, swelling, and irregular heartbeat. HISTORY OF PRESENT ILLNESS: This is a 63-year-old male who presents to [facility] after being sent to the emergency room by his primary care provider for atrial fibrillation with rapid ventricular response. The patient with a known history of prior atrial fibrillation, undergoing medical treatment including digoxin, Coreg, and anticoagulation with Eliquis. The patient states he underwent a transesophageal echocardiogram in preparation for cardioversion, however, was discovered with a left atrial thrombus in August 2018. Recommendations were to treat with rate control strategy in addition to anticoagulation and re-evaluate for possible radiofrequency ablation. The patient states he is continued on medical therapy since his last hospitalization at [facility] in August 2018, but admits to having a difficult work schedule without much downtime. The patient admits to increasing swelling of his lower extremities and abdomen, but is unable to quantitate weight gain. The patient states he has had difficulty walking short distances even up to 10 feet without becoming severely short of breath. The patient has had difficulty tying his shoes or putting on his clothes due to swelling and shortness of breath. The patient states he has been unable to lie flat or sleep for extended periods of time over the last several months. The patient denied any specific chest pain, but did admit to increased difficulty with deep breaths, but no specific fever. The patient denied prominent cough or productive sputum. The patient denied fever, chills, or exposure history. In the emergency room, the patient underwent general evaluation with EKG showing evidence of atrial fibrillation with rapid ventricular response with heart rates in the 130s. The patient received Lasix 40 mg IV x1 dose in addition to diltiazem 20 mg IV push followed by an infusion at 5 mg/hour. The patient also received DuoNeb therapy. Currently, the patient is chest pain free with mild shortness of breath, awaiting transfer to the telemetry unit. PAST MEDICAL HISTORY: 1. Atrial fibrillation with variable rate control, on chronic anticoagulation with Eliquis. 2. Left atrial thrombus. 3. Hypertension. 4. History of medication noncompliance. 5. Hyperlipidemia. PAST SURGICAL HISTORY: 1. Status post left knee surgery. 2. Status post hernia repair. 3. Status post shoulder repair. CURRENT MEDICATIONS: 1. Lasix 40 mg p.o. daily. 2. Lisinopril 40 mg p.o. daily. 3. Enteric-coated aspirin 81 mg p.o. daily. 4. Albuterol 90 mcg inhaled q.i.d. p.r.n. 5. Eliquis 5 mg p.o. b.i.d. 6. Carvedilol 12.5 mg p.o. b.i.d. 7. Digoxin 0.25 mg daily. 8. Diltiazem, unknown dose. 9. Spironolactone 25 mg p.o. daily. ALLERGIES: TO CODEINE. FAMILY HISTORY: Positive for hypertension. SOCIAL HISTORY: The patient is . Resides in the [place], [place] area. 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 Occasional alcohol use. No smoking or illicit drug use. REVIEW OF SYSTEMS: CONSTITUTIONAL: Negative for weight loss or gain, ability to conduct usual activities. SKIN: Negative for rash, itching. EYES: Negative for double vision, pain. ENT/MOUTH: Negative for nose bleeding, neck stiffness, pain, tenderness. CARDIOVASCULAR: Negative for palpitations, dyspnea on exertion, orthopnea. RESPIRATORY: Negative for shortness of breath, wheezing, cough, hemoptysis, fever or night sweats. GASTROINTESTINAL: Negative for poor appetite, abdominal pain, heartburn, nausea, vomiting, constipation, or diarrhea. GENITOURINARY: Negative for urgency, frequency, dysuria, nocturia. MUSCULOSKELETAL: Negative for pain, swelling. NEUROLOGIC/PSYCHIATRIC: Negative for anxiety, depression. ALLERGY/IMMUNOLOGIC: Negative for skin rash, bleeding tendency. Otherwise, negative except as stated per HPI. PHYSICAL EXAMINATION: VITAL SIGNS: On admission. Blood pressure 142/109, pulse 129, respiratory rate 20, temperature 97.5 degrees Fahrenheit, O2 saturation 98% on room air. GENERAL APPEARANCE: This is a 63-year-old male, alert and oriented x3, pleasant, in no acute distress. HEENT: Pupils are equal, round, reactive to light and accommodation. Extraocular muscles are intact. No scleral icterus. No conjunctival injection. Nares are patent. OP is clear. Teeth in fair repair. NECK: Supple. No cervical adenopathy. No thyromegaly. No carotid bruits. No JVD appreciated. Cervical spine with full active and passive range of motions. No meningeal signs noted. CHEST: Diminished breath sounds in the bases bilaterally with occasional bibasilar crackles. CARDIOVASCULAR: S1, S2 with irregular rate and rhythm. No murmur appreciated. ABDOMEN: Obese, soft with landmarks difficult to palpate due to patient's body habitus. No rebound or guarding noted. EXTREMITIES: Warm and dry with fair turgor. Pitting edema to the mid thigh region. Pulses are palpable distally at the dorsalis pedis, posterior tibial, and popliteal arteries bilaterally. Capillary refill is less than 2 seconds. NEUROLOGIC: Cranial nerves 2 through 12 are grossly intact. No focal or lateralizing signs appreciated. PERTINENT LAB AND X-RAY FINDINGS: Sodium 138, potassium 4.7, chloride 104, CO2 of 24, BUN 20, creatinine 1.39, estimated GFR 51, glucose 109, calcium 9.7, total bilirubin 1.9, AST 35, ALT of 58, alkaline phosphatase 73. Troponin I ranged between 0.024-0.055. BNP 3474, previously noted 1528 on 08/26/2018. CBC showed a white blood cell count of 9.7, hemoglobin 16.8, hematocrit 51, platelet count 205. Portable chest x-ray dated 03/22/2019, showed cardiomegaly without infiltrate. EKG dated 03/22/2019, by my interpretation shows atrial fibrillation with heart rates in the 130s. Attenuated R-waves in the precordial leads. Normal axis. ASSESSMENT AND PLAN: 1. Atrial fibrillation with rapid ventricular response. The patient will be admitted to the telemetry unit. We will continue Cardizem infusion at 10 mg/hour. Add digoxin 0.25 mg p.o. daily. Continue rate control strategy. Consult Cardiology and Electrophysiology Service in the a.m. The patient may be deemed an appropriate candidate for cardiac ablation. Continue Eliquis 5 mg b.i.d. Check 2D transthoracic echocardiogram for accurate ejection fraction. 2. Acute congestive heart failure. Exact type is unclear. We will check 2D transthoracic echocardiogram for accurate ejection fraction. Continue Lasix 40 mg IV b.i.d. Monitor daily weights and I's and O's. 3. Acute kidney injury on chronic kidney disease, stage 2. Avoid nephrotoxic agents and limit contrast exposure. Hold STEFANIE inhibitor. Repeat creatinine in the a.m. 4. Transaminitis. Suspect secondary to #2. We will repeat LFTs and monitor liver functions. 5. Demand ischemia of the myocardium. Secondary to #1. No current evidence to suggest acute coronary syndrome. Continue management as outlined in #1 and #2. 6. Hypertension. We will confirm home blood pressure regimen p.r.n. hydralazine. Resume home blood pressure regimen when confirmed. 7. Prophylaxis. SCDs while in bed. Pepcid 20 mg p.o. b.i.d. 8. Code status is full. Surrogate medical decision maker is the patient's spouse. Job ID: [id number]
[2019-03-23] MEDS: Acetaminophen 500 MG TAB PO PRN (03:50)
[2019-03-23 05:21] LABS: Band 1 % (5-11); Eosinophils 3 % (0-10); Hemoglobin 15.3 g/dL (14.0-18.0); Lymphocytes 28 % (21-51); MDiff Complete? YES; Mean Corpuscular HGB CONC 33.2 g/dL (32.0-36.0); Mean Corpuscular Hemoglobin 32.9 pg (27.0-31.0); Mean Platelet Volume 8.4 fL (7.4-10.4); Monocytes 11 % (0-10); Neutrophil 53 % (42-75); Platelet Count 189 thou/uL (130-400); Reactive Lymphocytes 4 % (0-10); Red Blood Cell (RBC) Count 4.66 mill/uL (4.70-6.10)
[2019-03-23] MEDS: Furosemide 40 MG/4 ML VIAL SLOW IVP SCH ×2 (05:25→14:20)
[2019-03-23 05:47] LABS: ALT (SGPT) 70 U/L (8-55); AST (SGOT) 59 U/L (5-34); Albumin 3.7 g/dL (3.4-4.8); Alkaline Phosphatase 64 U/L (40-150); Anion Gap 13 mmol/L (10-20); BUN (Urea Nitrogen) 20 mg/dL (8.4-25.7); Bilirubin, Total 1.4 mg/dL (0.2-1.2); Calc. Creatinine Clearance 87 mL/min (70-130); Calcium 8.7 mg/dL (7.8-10.44); Carbon Dioxide 23 mmol/L (23-31); Chloride 103 mmol/L (98-107); Estimated GFR-MDRD 59; Globulin 2.1 g/dL (2.4-3.5); Glucose 112 mg/dL (80-115); Magnesium 1.7 mg/dL (1.6-2.6); Potassium 3.4 mmol/L (3.5-5.1); Protein, Total 5.8 g/dL (5.8-8.1); Sodium 136 mmol/L (136-145)
[2019-03-23] MEDS ORDERED: Apixaban 5 MG TAB PO SCH (09:00)
[2019-03-23] MEDS ORDERED: Prevnar 13-Val Conj/PF 0.5 ML SYRINGE IM ONE (09:00)
[2019-03-23] MEDS: Famotidine 20 MG TAB PO SCH ×2 (09:47→21:00)
[2019-03-23] MEDS: Aspirin Chewable 81 MG TAB PO SCH (09:47)
[2019-03-23] MEDS: Digoxin 0.25 MG TAB PO SCH (09:47)
[2019-03-23] MEDS: Spironolactone 25 MG TAB PO SCH (09:48)
[2019-03-23] MEDS: Sacubitril 49 MG/Valsartan 51 MG TABLET PO SCH ×2 (09:48→20:57)
[2019-03-23] MEDS: Carvedilol 3.125 MG TAB PO SCH ×2 (09:48→16:45)
--- NOTE | 2019-03-23 11:18 | CON ---
DATE OF CONSULTATION: HISTORY OF PRESENT ILLNESS: The patient is a 63-year-old gentleman, who presents with increasing dyspnea. The patient has a history of nonischemic cardiomyopathy. He previously underwent a cardiac catheterization, which apparently revealed normal coronary arteries. He was seen in August 2018 with dyspnea. He was noted to be in rapid atrial fibrillation. He underwent a FELIPE, which revealed evidence of thrombus. The patient was placed on Eliquis. The patient states he has previously prior to this undergone several electrocardioversion. The patient presented with increasing dyspnea. He denied having any chest discomfort. PAST MEDICAL HISTORY: 1. Cardiomyopathy. 2. Atrial fibrillation. 3. Hypertension. 4. Dyslipidemia. PAST SURGICAL HISTORY: Knee surgery, shoulder surgery, hernia surgery. CURRENT MEDICATIONS: None. ALLERGIES: CODEINE. FAMILY HISTORY: No strong family history of CAD. SOCIAL HISTORY: Long history of ethanol abuse. PHYSICAL EXAMINATION: GENERAL: Well-developed gentleman in no acute distress. VITAL SIGNS: His blood pressure is 135/78. NECK: No jugular venous distention. LUNGS: Clear to auscultation. HEART: Irregular rate and rhythm. Normal S1 and S2. ABDOMEN: Distended. EXTREMITIES: Showed trace edema. VASCULAR: Radial pulses are 2+. LABORATORY DATA: Sodium 133, potassium 3.4, chloride 103, bicarbonate 23, BUN 20, creatinine 1.23. His AST is 59. Troponin 0.044. His white blood cell count 9.0, hemoglobin 15.3, hematocrit 46.2, platelets 189. IMAGING STUDIES: EKG atrial fibrillation with a rapid ventricular response. IMPRESSION: 1. Rapid atrial fibrillation. 2. History of severe cardiomyopathy. 3. History of left atrial thrombus. 4. Ethanol abuse. 5. History of normal coronary arteries. 6. Ethanol abuse. This gentleman presents with recurrent rapid atrial fibrillation. The patient is on appropriate cardiac medications. He had previously worn a LifeVest. We will ask EP to evaluate during this. We will recheck his echocardiogram and obtain EP consultation. We will consider electrical cardioversion. We will follow this patient with you through his hospitalization. Job ID: [id number] MTDD
[2019-03-23] MEDS: Diltiazem 125 MG in Sodium Chloride 0.9% 100 ML IVPB SCH (12:23)
--- NOTE | 2019-03-23 16:07 | PDOC.HOSPP ---
- Subjective Encounter Date: 03/23/19 Encounter Time: 16:00 Subjective: f/u for A-fib RVR on Cardizem gtt/Eliquis. Feels ok overall and SOB improved. Plan for CV per Cardiology recommendations. - Objective Vital Signs & Weight: Vital Signs (12 hours) Temp Pulse Resp BP Pulse Ox 03/23/19 15:32 97.4 F L 71 20 110/79 97 03/23/19 11:32 82 14 118/84 96 03/23/19 09:47 71 03/23/19 07:29 97.8 F 71 17 135/78 96 Weight Weight 228 lb 9.6 oz I&O: 03/22/19 03/23/19 03/24/19 06:59 06:59 06:59 Intake Total 960 Output Total 800 Balance 160 Result Diagrams: 03/23/19 04:20 03/23/19 04:20 Additional Labs: Laboratory Tests 03/22/19 03/22/19 03/23/19 12:24 12:28 04:20 Total Bilirubin 1.9 H 1.4 H AST 35 H 59 H ALT 58 H 70 H B-Natriuretic Peptide 3474.3 H TSH 3rd Generation 03/23/19 03/23/19 04:20 04:20 Total Bilirubin AST ALT B-Natriuretic Peptide 2116.2 H TSH 3rd Generation 4.0338 Radiology Reviewed by me: Yes (2D echo - pending) EKG Reviewed by me: Yes (Tele - A-fib in 80's) Hospitalist ROS - Medication Medications: Active Medications Generic Name Dose Route Start Last Admin Trade Name Freq PRN Reason Stop Dose Admin Acetaminophen 1,000 mg 03/22/19 21:16 03/23/19 03:50 Tylenol PO 1,000 mg Q6H PRN Administration Mild Pain (1-3) Apixaban 5 mg 03/23/19 09:00 03/23/19 09:47 Eliquis PO 5 mg BID HALINA Administration Aspirin 81 mg 03/23/19 09:00 03/23/19 09:47 Aspirin Chewable PO 81 mg DAILY HALINA Administration Carvedilol 3.125 mg 03/23/19 08:00 03/23/19 09:48 Coreg PO 3.125 mg BID-WM HALINA Administration Digoxin 0.25 mg 03/23/19 09:00 03/23/19 09:47 Lanoxin PO 0.25 mg QAM HALINA Administration Famotidine 20 mg 03/23/19 09:00 03/23/19 09:47 Pepcid PO 20 mg BID HALINA Administration Furosemide 40 mg 03/23/19 06:00 03/23/19 14:20 Lasix SLOW IVP 40 mg 0600,1400 HALINA Administration Diltiazem HCl 125 mg/ Sodium 125 mls @ 10 mls/hr 03/22/19 21:16 03/23/19 12: 23 Chloride IVPB 125 mls INF HALINA Administration Protocol 10 MG/HR Sacubitril/Valsartan 1 tab 03/23/19 09:00 03/23/19 09:48 Entresto 49 Mg-51 Mg Tablet PO 1 tab BID HALINA Administration Spironolactone 12.5 mg 03/23/19 09:00 03/23/19 09:48 Aldactone PO 12.5 mg DAILY HALINA Administration - Exam General Appearance: NAD, awake alert Eye: PERRL, anicteric sclera ENT: normocephalic atraumatic, no oropharyngeal lesions Neck: supple, symmetric, no JVD, no thyromegaly, no lymphadenopathy Heart: no gallops, no rubs, normal peripheral pulses, irregular Respiratory: CTAB, no wheezes, no rales, no ronchi, normal chest expansion Gastrointestinal: soft, non-tender, non-distended, normal bowel sounds Extremities: no cyanosis, no clubbing Extremities - other findings: mild edema of LE's Skin: normal turgor, no lesions Neurological: cranial nerve grossly intact, no focal deficits, no new deficit Musculoskeletal: normal tone, normal strength Psychiatric: normal affect, A&O x 3 Hosp A/P (1) Acute systolic CHF (congestive heart failure) Code(s): I50.21 - ACUTE SYSTOLIC (CONGESTIVE) HEART FAILURE Status: Acute Plan: Improved with IV Lasix, 2D echo pending, continue Entresto, Coreg, ASA, Aldactone (2) Transaminitis Code(s): R74.0 - NONSPEC ELEV OF LEVELS OF TRANSAMNS & LACTIC ACID DEHYDRGNSE Status: Acute Plan: ? subacute related to volume overload with component of ETOH-induced hepatitis, check B12/Folate, Hep A/B/C panel (3) Atrial fibrillation with RVR Code(s): I48.91 - UNSPECIFIED ATRIAL FIBRILLATION Status: Acute Plan: Rate improved on Cardizem gtt/Digoxin, plan for cardioversion, continue Eliquis and Coreg (4) Demand ischemia of myocardium Code(s): I24.8 - OTHER FORMS OF ACUTE ISCHEMIC HEART DISEASE Status: Acute Plan: Secondary to above (5) Acute kidney injury superimposed on CKD Code(s): N17.9 - ACUTE KIDNEY FAILURE, UNSPECIFIED; N18.9 - CHRONIC KIDNEY DISEASE, UNSPECIFIED Status: Acute Plan: Improved, avoid nephrotoxic meds and limit contrast exposure, serial creatinine - Plan 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
[2019-03-23] MEDS ORDERED: Potassium Chloride 20 MEQ TAB PO SCH (16:15)
[2019-03-23] MEDS: Potassium Chloride 20 MEQ TAB PO SCH (17:22)
--- NOTE | 2019-03-24 01:59 | CON ---
DATE OF CONSULTATION: 03/23/2019 I am seeing Mr. 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 His problems are: 1. Acute on chronic systolic congestive heart failure with likely nonischemic cardiomyopathy. a. History of severely reduced LVEF. FELIPE from 08/27/2018 with severely reduced LVEF and followup echo on 03/13/2019 reveals LVEF 15% to 20%. 2. Chronic atrial fibrillation. a. Remote history of possible ablation in the distant past with cardioversions. b. History of sotalol use in the past. c. Cardioversion was not done on 08/27/2018, hence early formation of thrombus detected in the left atrial appendage. 3. History of hypertension. 4. History of hyperlipidemia. 5. History of noncompliance. ALLERGIES: CODEINE. MEDICATIONS: At home included; 1. Lasix 40 mg daily. 2. Lisinopril 40 mg daily. 3. Enteric-coated aspirin 81 mg daily. 4. Albuterol 90 mcg daily. 5. Eliquis 5 mg twice a day. 6. Carvedilol 12.5 mg twice a day. 7. Digoxin 0.25 mg daily. 8. Diltiazem. 9. Spironolactone 25 mg daily. Patient has admitted quitting all of his medication three days ago, hence not feeling good, but has been admittedly compliant with medications prior to that. SUBJECTIVE: Mr. Rosario was admitted on the with progressive dyspnea, weakness, and rapid palpitations. He was noted to be in florid heart failure exacerbation and also in atrial fibrillation, rapid rates. He was diuresed and IV Cardizem was initiated. Digoxin was added. His rate is not controlled. He also diuresed significantly overnight. Currently denies PND, orthopnea, or lower extremity edema. No fever, chills, or cough. Prior to admission, he had significant orthopnea and PND. Denies angina on the other hand. Rest of 12-point system otherwise unremarkable. PAST MEDICAL HISTORY: Past history as above. Per prior notes, he may have had multiple cardioversions and on variety of antiarrhythmic agents, most recently sotalol 80 mg twice a day was used. He also underwent cardiac catheterization in the past and had normal coronary arteries. SOCIAL HISTORY: Patient denies smoking or drug use. He does have moderate EtOH abuse. 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 FAMILY HISTORY: Not contributory. PAST SURGICAL HISTORY: Significant for shoulder surgery, knee surgery, and hernia surgery. OBJECTIVE DATA: VITAL SIGNS: Blood pressure is 110/79, heart rate 71, respirations 20, and temperature 97.4 degrees Fahrenheit. GENERAL: Alert and oriented man, in no apparent distress. NECK: Supple. Jugular veins minimally distended. Hepatojugular reflux still positive. CHEST: Coarse without crackles. HEART: Sounds are irregularly irregular. S1, S2 variable. No murmur or gallop. ABDOMEN: Benign. Bowel sounds positive. EXTREMITIES: Lower extremity, without clubbing or cyanosis. 1+ edema noted only bilaterally. NEUROLOGIC: Patient is nonfocal. MUSCULOSKELETAL: No joint swelling or deformity. SKIN: Without rash. DATA REVIEWED: Date database. EKG is reviewed, initially revealing atrial fibrillation with rapid rates about 130 beats per minute. QRS is narrow. Single PVC is seen. Telemetry strips reviewed, revealing subsequent slowing of the atrial fibrillation, occasional PVCs. No VT or severe bradycardia seen. LABORATORY DATA: White count is 9, hemoglobin 15.3, and platelet count is 189. Sodium 136, potassium 3.4, BUN is 20, creatinine 1.23. AST and ALT are 59 and 70. Troponin I 0.055 and 0.044. BNP is 3474 initially, improving to 2116 subsequently. TSH is 4.03. IMAGING: The chest x-ray shows cardiomegaly. ASSESSMENT AND PLAN: Mr. Rosario is a 63-year-old man with history of now persisting atrial fibrillation, who has developed left ventricular dysfunction without history of coronary artery disease. He had severely reduced left ventricular ejection fraction back in August on a FELIPE performed by Dr. Saucedo, at which point cardioversion was not performed, hence the early formation of left atrial appendage thrombus. He failed to follow up with Dr. Saucedo's office, but has been taking the medications prescribed up until three days ago according to him. Now, he is off anticoagulants and rate-controlling agents on admission, but has been now rate controlled with IV medication. He is back on apixaban as well. His left ventricular ejection fraction again severely reduced in the 15% to 20% range. We discussed potential treatment options. The left ventricular ejection fraction reduction in the setting of adequate heart failure medication use. He is at risk for future ventricular arrhythmias. Implantation of ICD is reasonable and so long-term severely reduced left ventricular ejection fraction. We discussed pros and cons about this in the sense risk of infection, bleeding, pneumothorax, tamponade, device malfunctions. He is willing to proceed. Hence, he has been adequately diuresed. We will consider implanting it in the near future, possibly tomorrow. Paroxysmal atrial fibrillation. I agree for need for anticoagulation hence his elevated CHADS-VASC score, hypertension, and CHF, we will likely resume closely after the ICD implant. Long-term cardioversion, possibly antiarrhythmic medications suppression could be considered. He failed sotalol at some low dosages, consideration for transient amiodarone use could be made. It might be initiated prior to a planned FELIPE-guided cardioversion. We discussed issues with EtOH abuse in the setting of heart failure and nonischemic cardiomyopathy as well as amiodarone use and he is planning abstinence. 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 Job ID: [id number]
[2019-03-24] MEDS: Potassium Chloride 20 MEQ TAB PO SCH ×2 (05:43→17:38)
[2019-03-24] MEDS: Aspirin Chewable 81 MG TAB PO SCH (05:43)
[2019-03-24] MEDS: Digoxin 0.25 MG TAB PO SCH (05:43)
[2019-03-24] MEDS: Sacubitril 49 MG/Valsartan 51 MG TABLET PO SCH ×2 (05:44→21:18)
[2019-03-24] MEDS: Spironolactone 25 MG TAB PO SCH (05:44)
[2019-03-24] MEDS: Carvedilol 3.125 MG TAB PO SCH ×2 (05:44→17:34)
[2019-03-24] MEDS: Famotidine 20 MG TAB PO SCH ×2 (05:44→21:18)
[2019-03-24 06:22] LABS: ALT (SGPT) 70 U/L (8-55); AST (SGOT) 52 U/L (5-34); Albumin 3.6 g/dL (3.4-4.8); Alkaline Phosphatase 64 U/L (40-150); Anion Gap 12 mmol/L (10-20); BUN (Urea Nitrogen) 14 mg/dL (8.4-25.7); Calc. Creatinine Clearance 114 mL/min (70-130); Calcium 8.3 mg/dL (7.8-10.44); Carbon Dioxide 24 mmol/L (23-31); Chloride 107 mmol/L (98-107); Estimated GFR-MDRD 83; Glucose 105 mg/dL (80-115); Potassium 3.4 mmol/L (3.5-5.1); Protein, Total 5.6 g/dL (5.8-8.1); Sodium 140 mmol/L (136-145)
[2019-03-24 06:42] LABS: HBCM Index 0.06 S/CO (0-0.79); HBSAg Index 0.19 S/CO (0-0.99); Hep A IgM AB Non-Reactive (NonReactive); Hep A IgM S/CO 0.09 S/CO (0-0.79); Hep B Surf Ag Non-Reactive S/CO (NonReactive); Hep C IgG Ab Non-Reactive (NonReactive); Hep C Index 0.07 S/CO (0-0.79); Hepatitis B Core IgM Abs Non-Reactive (NonReactive)
[2019-03-24] MEDS: Furosemide 40 MG/4 ML VIAL SLOW IVP SCH ×2 (07:36→17:38)
[2019-03-24] MEDS ORDERED: Iopamidol 370 76% 50 ML VIAL FS ONE (11:33)
[2019-03-24] MEDS ORDERED: Midazolam HCl 2 mg/2 ml Vial ONE (13:27)
[2019-03-24] MEDS ORDERED: Ketamine 50 MG/ML (10ML VIAL) ONE (13:27)
[2019-03-24] MEDS ORDERED: Fentanyl 100 MCG/2 ML VIAL ONE ×2 (13:27→15:34)
[2019-03-24] MEDS ORDERED: Lidocaine 1% (PF) 30 ML VIAL ONE (13:35)
--- NOTE | 2019-03-24 15:49 | RAD ---
EXAM: CHEST ONE VIEW HISTORY: Postoperative placement of AICD COMPARISON: 03/22/2019 FINDINGS: There has been interval placement of a dual-lead left subclavian AICD device. The lungs are clear wit hout evidence of a pneumothorax. Remote right-sided rib fractures are again seen. Vascular calcifications are seen in thoracic aorta. IMPRESSION: Interval placement of dual lead left subclavian AICD device without evidence of a pneumothorax.
--- NOTE | 2019-03-24 16:23 | PDOC.HOSPP ---
- Subjective Encounter Date: 03/24/19 Encounter Time: 16:20 Subjective: f/u for systolic CHF, Cardiomyopathy and A-fib RVR s/p AICD placement today. Doing better overall. - Objective Vital Signs & Weight: Vital Signs (12 hours) Temp Pulse Pulse Pulse Resp BP BP 03/24/19 11:44 97.5 F L 82 20 03/24/19 09:52 77 74 123/85 153/89 H 03/24/19 07:50 98.2 F 63 18 03/24/19 05:43 62 BP Pulse Ox Pulse Ox 03/24/19 11:44 141/95 H 96 03/24/19 09:52 93 L 03/24/19 07:50 123/76 95 03/24/19 05:43 Weight Weight 222 lb 12.8 oz I&O: 03/23/19 03/24/19 03/25/19 06:59 06:59 06:59 Intake Total 960 1560 Output Total 800 3950 Balance 160 -2390 Result Diagrams: 03/23/19 04:20 03/24/19 05:42 Additional Labs: Laboratory Tests 03/22/19 03/22/19 03/23/19 12:24 12:28 04:20 Potassium 3.4 L Total Bilirubin 1.9 H 1.4 H AST 35 H 59 H ALT 58 H 70 H B-Natriuretic Peptide 3474.3 H Vitamin B12 Folate TSH 3rd Generation Hepatitis A IgM Ab Hep Bs Antigen Hep B Core IgM Ab Hepatitis C Antibody 03/23/19 03/23/19 03/24/19 04:20 04:20 05:42 Potassium Total Bilirubin 1.0 AST 52 H ALT 70 H B-Natriuretic Peptide 2116.2 H Vitamin B12 Folate TSH 3rd Generation 4.0338 Hepatitis A IgM Ab Hep Bs Antigen Hep B Core IgM Ab Hepatitis C Antibody 03/24/19 03/24/19 05:42 05:42 Potassium Total Bilirubin AST ALT B-Natriuretic Peptide Vitamin B12 800 Folate 9.00 TSH 3rd Generation Hepatitis A IgM Ab Non-Reactive Hep Bs Antigen Non-Reactive Hep B Core IgM Ab Non-Reactive Hepatitis C Antibody Non-Reactive Radiology Reviewed by me: Yes (Echo - EF 15-20%, mod LAE, mod TR/MR) EKG Reviewed by me: Yes (Tele - A-fib in 70's) Hospitalist ROS - Medication Medications: Active Medications Generic Name Dose Route Start Last Admin Trade Name Freq PRN Reason Stop Dose Admin Acetaminophen 1,000 mg 03/22/19 21:16 03/23/19 03:50 Tylenol PO 1,000 mg Q6H PRN Administration Mild Pain (1-3) Apixaban 5 mg 03/23/19 09:00 03/23/19 09:47 Eliquis PO 5 mg BID HALINA Administration Aspirin 81 mg 03/23/19 09:00 03/24/19 05:43 Aspirin Chewable PO 81 mg DAILY HALINA Administration Carvedilol 3.125 mg 03/23/19 08:00 03/24/19 05:44 Coreg PO 3.125 mg BID-WM [facility] Administration Digoxin 0.25 mg 03/23/19 09:00 03/24/19 05:43 Lanoxin PO 0.25 mg QAM [facility] Administration Famotidine 20 mg 03/23/19 09:00 03/24/19 05:44 Pepcid PO 20 mg BID HALINA Administration Furosemide 40 mg 03/23/19 06:00 03/24/19 07:36 Lasix SLOW IVP Not Given 0600,1400 [facility] Diltiazem HCl 125 mg/ Sodium 125 mls @ 10 mls/hr 03/22/19 21:16 03/23/19 12: 23 Chloride IVPB 125 mls INF HALINA Administration Protocol 10 MG/HR Potassium Chloride 40 meq 03/23/19 17:00 03/24/19 05:43 K-Dur PO 40 meq BID-WM [facility] Administration Sacubitril/Valsartan 1 tab 03/23/19 09:00 03/24/19 05:44 Entresto 49 Mg-51 Mg Tablet PO 1 tab BID [facility] Administration Spironolactone 12.5 mg 03/23/19 09:00 03/24/19 05:44 Aldactone PO 12.5 mg DAILY [facility] Administration - Exam General Appearance: NAD, awake alert Eye: PERRL, anicteric sclera ENT: normocephalic atraumatic, no oropharyngeal lesions Neck: supple, symmetric, no JVD, no thyromegaly, no lymphadenopathy Heart: no murmur, no gallops, no rubs Respiratory: CTAB, no wheezes, no rales, no ronchi, normal chest expansion Gastrointestinal: soft, non-tender, non-distended, normal bowel sounds Extremities: no cyanosis, no clubbing Extremities - other findings: minimal LE edema Skin: normal turgor, no lesions Neurological: cranial nerve grossly intact, no focal deficits, no new deficit Musculoskeletal: normal tone, normal strength Psychiatric: normal affect, A&O x 3 Hosp A/P (1) Acute systolic CHF (congestive heart failure) Code(s): I50.21 - ACUTE SYSTOLIC (CONGESTIVE) HEART FAILURE Status: Acute Plan: EF 15-20%, continue Lasix, monitor I/O's, Daily weight (2) Transaminitis Code(s): R74.0 - NONSPEC ELEV OF LEVELS OF TRANSAMNS & LACTIC ACID DEHYDRGNSE Status: Acute Plan: Likely multifactorial, serial monitoring (3) Atrial fibrillation with RVR Code(s): I48.91 - UNSPECIFIED ATRIAL FIBRILLATION Status: Chronic Plan: Rate controlled currently with Cardizem, Digoxin, Coreg (4) Demand ischemia of myocardium Code(s): I24.8 - OTHER FORMS OF ACUTE ISCHEMIC HEART DISEASE Status: Acute Plan: Due to A-fib/CHF, no acute intervention recommended (5) Acute kidney injury superimposed on CKD Code(s): N17.9 - ACUTE KIDNEY FAILURE, UNSPECIFIED; N18.9 - CHRONIC KIDNEY DISEASE, UNSPECIFIED Status: Acute Plan: Improved, avoid nephrotoxic meds and limit contrast exposure (6) Nonischemic cardiomyopathy Code(s): I42.8 - OTHER CARDIOMYOPATHIES Status: Chronic Plan: s/p AICD placement 03/24/19 - Plan 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
[2019-03-24] MEDS ORDERED: Carvedilol 3.125 MG TAB PO SCH (17:30)
[2019-03-24] MEDS: Acetaminophen 500 MG TAB PO PRN (21:18)
[2019-03-24] MEDS: CEFAZOLIN 2 GM in Premix Bag 1 BAG IVPB SCH (21:19)
[2019-03-25] MEDS: CEFAZOLIN 2 GM in Premix Bag 1 BAG IVPB SCH (03:53)
[2019-03-25] MEDS: Cephalexin 250 MG CAP PO SCH ×3 (06:20→17:16)
[2019-03-25] MEDS: Furosemide 40 MG/4 ML VIAL SLOW IVP SCH ×2 (06:20→15:10)
[2019-03-25] MEDS ORDERED: Morphine 2 MG/ML SYRINGE SLOW IVP PRN (07:55)
[2019-03-25] MEDS: Spironolactone 25 MG TAB PO SCH (08:33)
[2019-03-25] MEDS: Carvedilol 6.25 MG TAB PO SCH ×2 (08:33→17:16)
[2019-03-25] MEDS: Sacubitril 49 MG/Valsartan 51 MG TABLET PO SCH ×2 (08:33→20:27)
[2019-03-25] MEDS: Famotidine 20 MG TAB PO SCH ×2 (08:34→20:27)
[2019-03-25] MEDS: Aspirin Chewable 81 MG TAB PO SCH (08:34)
[2019-03-25] MEDS: Potassium Chloride 20 MEQ TAB PO SCH ×2 (08:34→17:16)
[2019-03-25] MEDS: Amiodarone 200 MG TAB PO SCH ×3 (09:10→20:28)
[2019-03-25] MEDS: Digoxin 0.125 MG TAB PO SCH (09:10)
[2019-03-25] MEDS: Acetaminophen 500 MG TAB PO PRN ×2 (12:00→20:31)
[2019-03-25] MEDS: Apixaban 5 MG TAB PO SCH (20:28)
--- NOTE | 2019-03-25 23:08 | PDOC.HOSPP ---
- Subjective Encounter Date: 03/25/19 Encounter Time: 18:00 Subjective: f/u A-fib RVR and acute/chronic systolic CHF s/p AICD placement. Remains in A- fib but rate-controlled. No new complaints. - Objective Vital Signs & Weight: Vital Signs (12 hours) Temp Pulse Resp BP BP Pulse Ox 03/25/19 20:00 98.8 F 76 16 133/76 95 03/25/19 17:16 155/74 H 03/25/19 15:20 97.4 F L 76 16 158/87 H 96 03/25/19 11:10 97.6 F 96 16 134/94 H 96 Weight Weight 212 lb I&O: 03/24/19 03/25/19 03/26/19 06:59 06:59 06:59 Intake Total 1560 1380 720 Output Total 3950 4150 1750 Balance -2390 -2770 -1030 Result Diagrams: 03/23/19 04:20 03/24/19 05:42 Additional Labs: Laboratory Tests 03/22/19 03/22/19 03/23/19 12:24 12:28 04:20 Potassium 3.4 L Total Bilirubin 1.9 H 1.4 H AST 35 H 59 H ALT 58 H 70 H B-Natriuretic Peptide 3474.3 H Vitamin B12 Folate TSH 3rd Generation Hepatitis A IgM Ab Hep Bs Antigen Hep B Core IgM Ab Hepatitis C Antibody 03/23/19 03/23/19 03/24/19 04:20 04:20 05:42 Potassium Total Bilirubin 1.0 AST 52 H ALT 70 H B-Natriuretic Peptide 2116.2 H Vitamin B12 Folate TSH 3rd Generation 4.0338 Hepatitis A IgM Ab Hep Bs Antigen Hep B Core IgM Ab Hepatitis C Antibody 03/24/19 03/24/19 05:42 05:42 Potassium Total Bilirubin AST ALT B-Natriuretic Peptide Vitamin B12 800 Folate 9.00 TSH 3rd Generation Hepatitis A IgM Ab Non-Reactive Hep Bs Antigen Non-Reactive Hep B Core IgM Ab Non-Reactive Hepatitis C Antibody Non-Reactive Radiology Reviewed by me: Yes (Echo - EF 15-20%, mod TR/MR) EKG Reviewed by me: Yes (Tele - A-fib in 80's) Hospitalist ROS - Medication Medications: Active Medications Generic Name Dose Route Start Last Admin Trade Name Freq PRN Reason Stop Dose Admin Acetaminophen 1,000 mg 03/22/19:16 03/25/19 20:31 Tylenol PO 1,000 mg Q6H PRN Administration Mild Pain (1-3) Amiodarone HCl 400 mg 03/25/19 09:00 03/25/19 20:28 Cordarone PO 400 mg TID HALINA Administration Apixaban 5 mg 03/25/19 21:00 03/25/19 20:28 Eliquis PO 5 mg BID HALINA Administration Aspirin 81 mg 03/23/19 09:00 03/25/19 08:34 Aspirin Chewable PO 81 mg DAILY HALINA Administration Carvedilol 6.25 mg 03/25/19 08:00 03/25/19 17:16 Coreg PO 6.25 mg BID-WM HALINA Administration Cephalexin 500 mg 03/25/19 06:00 03/25/19 17:16 Keflex PO 04/01/19 06:01 500 mg Q6HR HALINA Administration Digoxin 0.125 mg 03/25/19 09:00 03/25/19 09:10 Lanoxin PO 0.125 mg DAILY HALINA Administration Famotidine 20 mg 03/23/19 09:00 03/25/19 20:27 Pepcid PO 20 mg BID HALINA Administration Furosemide 40 mg 03/23/19 06:00 03/25/19 15:10 Lasix SLOW IVP 40 mg 0600,1400 HALINA Administration Morphine Sulfate 2 mg 03/25/19 07:55 03/25/19 08:35 Morphine SLOW IVP 2 mg Q2H PRN Administration Pain Potassium Chloride 40 meq 03/23/19 17:00 03/25/19 17:16 K-Dur PO 40 meq BID-WM HALINA Administration Sacubitril/Valsartan 1 tab 03/23/19 09:00 03/25/19 20:27 Entresto 49 Mg-51 Mg Tablet PO 1 tab BID HALINA Administration Spironolactone 12.5 mg 03/23/19 09:00 03/25/19 08:33 Aldactone PO 12.5 mg DAILY HALINA Administration - Exam General Appearance: NAD, awake alert Eye: PERRL, anicteric sclera ENT: normocephalic atraumatic, no oropharyngeal lesions Neck: supple, symmetric, no JVD, no thyromegaly, no lymphadenopathy Heart: no gallops, no rubs, normal peripheral pulses, irregular Respiratory: CTAB, no wheezes, no rales, no ronchi Gastrointestinal: soft, non-tender, non-distended, normal bowel sounds, no palpable masses Extremities: no cyanosis Extremities - other findings: minimal edema of LE's Skin: normal turgor, no lesions Neurological: cranial nerve grossly intact, no new deficit Musculoskeletal: normal tone, normal strength, no muscle wasting Psychiatric: normal affect, A&O x 3 Hosp A/P (1) Acute systolic CHF (congestive heart failure) Code(s): I50.21 - ACUTE SYSTOLIC (CONGESTIVE) HEART FAILURE Status: Acute Plan: EF 15-20%, continue Lasix 40mg IV BID, serial I/O's, daily weight (2) Transaminitis Code(s): R74.0 - NONSPEC ELEV OF LEVELS OF TRANSAMNS & LACTIC ACID DEHYDRGNSE Status: Acute Plan: Likely due to CHF in conjunction with ETOH abuse (3) Atrial fibrillation with RVR Code(s): I48.91 - UNSPECIFIED ATRIAL FIBRILLATION Status: Chronic Plan: Rate-controlled, continue Amiodarone loading, Digoxin (4) Demand ischemia of myocardium Code(s): I24.8 - OTHER FORMS OF ACUTE ISCHEMIC HEART DISEASE Status: Acute (5) Acute kidney injury superimposed on CKD Code(s): N17.9 - ACUTE KIDNEY FAILURE, UNSPECIFIED; N18.9 - CHRONIC KIDNEY DISEASE, UNSPECIFIED Status: Acute Plan: Improved with volume mgmt (6) Nonischemic cardiomyopathy Code(s): I42.8 - OTHER CARDIOMYOPATHIES Status: Chronic Plan: continue volume mgmt, EF 15-20%, s/p AICD placement - Plan plan discussed w/ family, continue antibiotics, 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
[2019-03-26] MEDS: Cephalexin 250 MG CAP PO SCH ×3 (00:50→11:54)
[2019-03-26] MEDS: Acetaminophen 500 MG TAB PO PRN (03:13)
[2019-03-26 06:10] LABS: Anion Gap 10 mmol/L (10-20); BUN (Urea Nitrogen) 14 mg/dL (8.4-25.7); Calc. Creatinine Clearance 94 mL/min (70-130); Calcium 8.5 mg/dL (7.8-10.44); Carbon Dioxide 27 mmol/L (23-31); Chloride 107 mmol/L (98-107); Estimated GFR-MDRD 69; Glucose 97 mg/dL (80-115); Sodium 140 mmol/L (136-145)
[2019-03-26] MEDS: Furosemide 40 MG/4 ML VIAL SLOW IVP SCH (06:33)
[2019-03-26 07:45] VITALS: TEMP 98.6
[2019-03-26] MEDS: Carvedilol 6.25 MG TAB PO SCH (08:26)
[2019-03-26] MEDS: Potassium Chloride 20 MEQ TAB PO SCH (08:26)
[2019-03-26] MEDS: Spironolactone 25 MG TAB PO SCH (08:27)
[2019-03-26] MEDS: Amiodarone 200 MG TAB PO SCH (08:27)
[2019-03-26] MEDS: Aspirin Chewable 81 MG TAB PO SCH (08:27)
[2019-03-26] MEDS: Famotidine 20 MG TAB PO SCH (08:27)
[2019-03-26] MEDS: Apixaban 5 MG TAB PO SCH (08:27)
[2019-03-26] MEDS: Digoxin 0.125 MG TAB PO SCH (08:27)
[2019-03-26] MEDS: Sacubitril 49 MG/Valsartan 51 MG TABLET PO SCH (08:28)
[2019-03-26 12:05] VITALS: BP 129/94
--- NOTE | 2019-03-26 12:37 | PRG ---
DATE OF SERVICE: 03/26/2019 SUBJECTIVE: Mr. Rosario is doing well 2 days after his ICD implant. He is having minor discomfort at the pacemaker insertion site. OBJECTIVE: VITAL SIGNS: Blood pressure 137/99, heart rate 73, respiratory rate is 18, temperature is 98.6 degrees Fahrenheit. The electrolytes reveal normal BUN and creatinine. The in's and out's reveal weight down to 213 pounds with worsening negative in's and out's for last 3 days. GENERAL: He is alert and oriented man, in no apparent distress. NECK: Supple. Jugular veins not distended. CHEST: Coarse without crackles. HEART: Heart sounds are irregularly irregular. S1 and S2 are variable. No murmur or gallop. Left precordial pacemaker insertion site is with good wound edge approximation without obvious hematoma. ABDOMEN: Benign. Bowel sounds are positive. EXTREMITIES: Lower extremities without edema, clubbing, or cyanosis. DATABASE: Telemetry strips reviewed, revealing continued atrial fibrillation with controlled ventricular rate. No significant QT prolongation. Occasional PVCs are noted. LABORATORY DATA: White cell count is 9, hemoglobin 15.3, platelet count is 189. Sodium 140, potassium 4, BUN is 14, and creatinine 1.07. DIAGNOSTIC DATA: The chest x-ray showed no pneumothorax, and adequate lead placement for dual-chamber device. ASSESSMENT AND PLAN: Mr. Rosario is a pleasant 63-year-old man with history of persistent atrial fibrillation, nonischemic cardiomyopathy, who presented with heart failure exacerbation. Hence, he has been on adequate medical regimen up to 3 days prior to admission. He underwent a dual-chamber ICD implantation and now he seems to be recovering well 2 days post implant. He has been adequately diuresed and his heart failure exacerbation has resolved. He is back on Eliquis and he was started on amiodarone yesterday. Our plan is to continue amiodarone loading and oral anticoagulation as well. He likely would benefit for a FELIPE-guided cardioversion in the future. Routine followup in the office for 2 weeks for wound check is requested. He likely will undergo a FELIPE-guided cardioversion with Dr. Saucedo in the near future. Regimen will be made for p.o. antibiotics for a week as an outpatient. Continue rate control with current agents. Continue optimizations with volume status. Job ID: [id number]
--- NOTE | 2019-03-26 22:54 | DIS ---
DATE OF ADMISSION: 03/22/2019 DATE OF DISCHARGE: 03/26/2019 DISCHARGE DIAGNOSES: 1. Acute systolic congestive heart failure exacerbation with ejection fraction of 15% to 20%, improved. 2. Atrial fibrillation with rapid ventricular response, rate controlled. 3. Nonischemic cardiomyopathy with ejection fraction of 15% to 20%, status post AICD placement. 4. Transaminitis, chronic and stable. 5. Demand ischemia of the myocardium, stable. 6. Acute kidney injury on chronic kidney disease, improved. 7. Hypokalemia, resolved. CONSULTATIONS: 1. Dr. Moise with Electrophysiology Service. 2. Dr. Saucedo with Cardiology Service. PERTINENT LABORATORY AND X-RAY FINDINGS: Potassium ranged between 3.4 to 4.7. Creatinine ranged between 0.92 to 1.39. Estimated GFR ranged between 51 to 83. Total bilirubin ranged between 1.0 to 1.9. AST ranged between 35 to 59, ALT ranged between 58 to 70. Troponin I ranged between 0.024 to 0.055. BNP ranged between 2116 to 3474. TSH 4.03. Vitamin B12 level 800, folate 9.0. CBC within normal limits. Digoxin level 0.30 on 03/26/2019. Hepatitis A, B, and C panel negative on 03/24/2019. Portable chest x-ray dated 03/22/2019, showed cardiomegaly. 2D transthoracic echocardiogram dated 03/23/2019, showed ejection fraction of 15% to 20%. Moderate left atrial enlargement. Moderate mitral and tricuspid valve regurgitation. HOSPITAL COURSE: The patient was initially admitted to the telemetry unit after presenting with general weakness, lower extremity swelling, and palpitations. The patient was noted in atrial fibrillation with rapid ventricular response after initial evaluation in the emergency room. The patient was initially given Cardizem IV push in addition to an infusion of Cardizem with Lasix 40 mg x1. The patient was evaluated by the Cardiology Service due to recurrent atrial fibrillation. The patient continued on Cardizem infusion in addition to digoxin and underwent evaluation by Cardiology with recommendations to initiate amiodarone. The patient also underwent 2D transthoracic echocardiogram showing evidence of depressed ejection fraction in the 15% to 20% range. Due to the patient's low ejection fraction, an AICD device was placed after consultation with the Electrophysiology Service. The patient continued on medical management with titration of the amiodarone dosing to complete a loading amount, tolerating therapy without difficulty. The patient's atrial fibrillation was rate controlled; however, the patient did not convert to sinus mechanism during the hospital course. Current plans are for potential cardioversion after anticoagulation for 2-3 weeks from discharge. Overall, the patient did remain clinically stable during the hospital course and tolerated regular oral intake. I have examined the patient at the time of discharge and discussed followup instructions. The patient verbalized understanding and in agreement, ready for discharge on 03/26/2019. DISCHARGE MEDICATIONS: 1. Amiodarone 200 mg 2 tablets p.o. b.i.d. x2 weeks followed by 1 tablet p.o. daily x2 weeks followed by 1 tablet p.o. daily. 2. Eliquis 5 mg p.o. b.i.d. 3. Enteric-coated aspirin 81 mg p.o. daily. 4. Coreg 6.25 mg p.o. b.i.d. 5. Keflex 500 mg p.o. q.i.d. x7 days. 6. Digoxin 0.125 mg p.o. daily. 7. Lasix 40 mg p.o. daily. 8. K-Dur 40 mEq p.o. daily. 9. Entresto 49/51 mg 1 tablet p.o. b.i.d. 10. Aldactone 12.5 mg p.o. daily. FOLLOWUP: The patient is to follow up with his primary care provider, Dr. Leonardo Barahona within 7 days of discharge. The patient will follow up with Dr. Kyrie Curry with [facility] on 04/01/2019, at 11:00 am. The patient will follow up with Dr. Moise within 2 weeks of discharge. CONDITION ON DISCHARGE: Stable. ACTIVITY: Ad-chaparro. DIET: Heart healthy. CODE STATUS: Full. DISPOSITION: Home on 03/26/2019. TIME SPENT: Total time preparing and coordinating discharge 36 minutes. Job ID: [id number]
[2019-03-27] MEDS ORDERED: Furosemide 40 MG TAB PO SCH (07:30)
--- NOTE | 2019-03-27 13:28 | EKG ---
Test Reason : Blood Pressure : / mmHG Vent. Rate : 104 BPM Atrial Rate : 104 BPM P-R Int : 000 ms QRS Dur : 086 ms QT Int : 362 ms P-R-T Axes : 000 056 197 degrees QTc Int : 476 ms Atrial fibrillation with rapid ventricular response with premature ventricular or aberrantly conducte d complexes Septal infarct , age undetermined Abnormal ECG Confirmed by MERARI ANTONIO, CARLA ([id number]), associate entertainment editor GUY REY ([id number]) on 03/27/2019 1:28:21 PM Referred By: Confirmed By:CARLA GAGE MD
--- NOTE | 2019-03-27 13:28 | EKG ---
Test Reason : Blood Pressure : / mmHG Vent. Rate : 130 BPM Atrial Rate : 122 BPM P-R Int : 000 ms QRS Dur : 086 ms QT Int : 276 ms P-R-T Axes : 000 064 238 degrees QTc Int : 406 ms Atrial fibrillation with rapid ventricular response with premature ventricular or aberrantly conducte d complexes Septal infarct , age undetermined Abnormal ECG Confirmed by MERARI ANTONIO, CARLA ([id number]), editor magazine GUY REY ([id number]) on 03/27/2019 1:27:59 PM Referred By: Confirmed By:CARLA GAGE MD
== END 2019-03-26 13:52 | disposition home or self-care (01) | DRG 226 ==
LOC: ERS 11:53 → ERHOLD 15:24 → 2NO 20:52
PROVIDERS: ADMIT Family Medicine; ATTEND Family Medicine
PROC: 0JH608Z Insertion of Defibrillator Generator into Chest Subcutaneous Tissue and Fascia, Open Approach (ICD-10-PCS; principal; 2019-03-24)
PROC: 02HK3KZ Insertion of Defibrillator Lead into Right Ventricle, Percutaneous Approach (ICD-10-PCS; 2019-03-24)
PROC: 02H63KZ Insertion of Defibrillator Lead into Right Atrium, Percutaneous Approach (ICD-10-PCS; 2019-03-24)
DX: I48.0 Paroxysmal atrial fibrillation (principal); I50.23 Acute on chronic systolic (congestive) heart failure; N17.9 Acute kidney failure, unspecified; I13.0 Hypertensive heart and chronic kidney disease with heart failure and stage 1 through stage 4 chronic kidney disease, or unspecified chronic kidney disease; I24.8 Other forms of acute ischemic heart disease; I42.8 Other cardiomyopathies; E78.5 Hyperlipidemia, unspecified; N18.2 Chronic kidney disease, stage 2 (mild); R74.0 Nonspecific elevation of levels of transaminase and lactic acid dehydrogenase [LDH]; E87.6 Hypokalemia; Z79.82 Long term (current) use of aspirin; Z86.718 Personal history of other venous thrombosis and embolism; Z79.01 Long term (current) use of anticoagulants; Z79.899 Other long term (current) drug therapy; Z88.5 Allergy status to narcotic agent; Z91.19 Patient's noncompliance with other medical treatment and regimen
CPT/HCPCS: 33230; 36005; 36415; 71045; 71046; 75820; 80048; 80053; 80074; 80162; 82550; 82607; 82746; 83735; 83880; 84443; 84484; 85007; 85025; 85027; 90471; 90670; 93005; 93306; 93798; 94640; 96365; 96366; 96375; 96376; C1721; C1777; C1898; G0009; J0690; J1940; J2001; J2250; J2270; J3010; J3490; J7620

== ENCOUNTER 2019-07-05 08:25 | Inpatient (IN) | payer MEDICARE, OTHER ==
[2019-07-05] MEDS ORDERED: Diltiazem 125 MG/25 ML ONE (08:38)
[2019-07-05] MEDS ORDERED: Aspirin Chewable 81 MG TAB ONE (08:48)
[2019-07-05 09:06] LABS: #Basophils 0.1 thou/uL (0.0-0.2); #Eosinphils 0.1 thou/uL (0.0-0.7); #Lymphocytes 1.1 thou/uL (1.20-3.40); #Monocytes 0.7 thou/uL (0.11-0.59); #Neutrophils 6.2 thou/uL (1.40-6.50); %Basophils 0.6 % (0.0-1.0); %Eosinophils 0.8 % (0.0-10.0); %Lymphocytes 14.1 % (21.0-51.0); %Monocytes 8.6 % (0.0-10.0); %Neutrophils 75.9 % (42.0-75.0); Hemoglobin 14.8 g/dL (14.0-18.0); Mean Corpuscular HGB CONC 31.6 g/dL (32.0-36.0); Mean Corpuscular Hemoglobin 30.8 pg (27.0-31.0); Mean Corpuscular Volume 97.4 fL (78.0-98.0); Mean Platelet Volume 8.5 fL (7.4-10.4); Platelet Count 193 thou/uL (130-400); RBC Distribution Width 14.1 % (11.5-14.5); Red Blood Cell (RBC) Count 4.82 mill/uL (4.70-6.10); White Blood Cell (WBC) Count 8.1 thou/uL (4.8-10.8)
[2019-07-05 09:31] LABS: ALT (SGPT) 22 U/L (8-55); AST (SGOT) 27 U/L (5-34); Albumin 4.1 g/dL (3.4-4.8); Alkaline Phosphatase 94 U/L (40-110); Anion Gap 14 mmol/L (10-20); BUN (Urea Nitrogen) 21 mg/dL (8.4-25.7); Bilirubin, Total 1.5 mg/dL (0.2-1.2); Calc. Creatinine Clearance 0 mL/min (70-130); Calcium 8.9 mg/dL (7.8-10.44); Carbon Dioxide 26 mmol/L (23-31); Chloride 106 mmol/L (98-107); Digoxin Less than 0.15 ng/mL (0.8-2.0); Estimated GFR-MDRD 45; Globulin 2.5 g/dL (2.4-3.5); Glucose 116 mg/dL (80-115); Magnesium 2.2 mg/dL (1.6-2.6); Potassium 4.4 mmol/L (3.5-5.1); Protein, Total 6.6 g/dL (5.8-8.1); Sodium 142 mmol/L (136-145)
--- NOTE | 2019-07-05 09:33 | RAD ---
PORTABLE CHEST 1 VIEW: DATE: 07/05/2019. TIME: 9:01 a.m. HISTORY: Shortness of breath, CHF. FINDINGS: Comparison is made with the exam of 03/24/2019. The heart is enlarged. The aorta is tortuous. Left-sided AICD remains in place. The lungs are expa nded without lobar consolidation, pneumothoraces, aamir pulmonary edema, or pleural effusions. POS: OFF
[2019-07-05 09:53] LABS: CKMB 2.8 ng/mL (0-6.6)
[2019-07-05] MEDS ORDERED: Famotidine/PF 20 mg/2ml Vial ONE (10:42)
[2019-07-05] MEDS ORDERED: Lidocaine Viscous Sol 2% 15 ml UD Cup ONE (10:49)
[2019-07-05] MEDS ORDERED: Mag-Al 1200 mg/1200 mg/30 ML UDCUP ONE (10:49)
[2019-07-05] MEDS ORDERED: Digoxin 0.5 MG/2 ML AMP ONE (11:26)
[2019-07-05] MEDS ORDERED: Ondansetron ODT 4 MG TAB PO PRN (11:31)
[2019-07-05] MEDS ORDERED: Ondansetron PF 4 MG/2 ML Vial IVP PRN (11:31)
[2019-07-05] MEDS ORDERED: Furosemide 20 MG/2 ML VIAL SLOW IVP SCH (11:45)
--- NOTE | 2019-07-05 13:00 | PDOC.FPRHP ---
- History of Present Illness Chief Complaint: dyspnea History of Present Illness: Mr. Rosario is a 64 yo M that presents with dypnea for the past 2 weeks and palpitations today. a few years ago he was diagnosed with HFrEF with multiple exacerbations in that time. Afib as well, followed with EP and cardiology but has not been to see them in quite some time. 3-4 weeks ago he discontinued all of his medications. The dyspnea has been worsening to a point where he can not walk more than 15ft without having to stop to catch his breath. additionally he reports swelling of his legs, his pants not fitting, orthopnea and cough. denies fever, chills, chest pain, GI upset. ED Course: CBC, CMP, CXR, mag dilt, dig .5 - Allergies/Adverse Reactions Allergies Allergy/AdvReac Type Severity Reaction Status Date / Time codeine Allergy Hives Verified 08/26/18 20:11 - Home Medications Medication Instructions Recorded Confirmed Type Amiodarone [Cordarone] 200 mg PO BID #120 tab 03/26/19 Rx Apixaban [Eliquis] 5 mg PO BID #60 tab 03/26/19 Rx Aspirin Chewable [Aspirin Chewable 81 mg PO DAILY tab 03/26/19 Rx Tablet] Carvedilol [Coreg] 6.25 mg PO BID-WM #60 tab 03/26/19 Rx Cephalexin [Keflex] 500 mg PO Q6HR #28 cap 03/26/19 Rx Digoxin [Lanoxin] 0.125 mg PO DAILY #30 tab 03/26/19 Rx Furosemide [Lasix] 40 mg PO DAILY-AC #30 tab 03/26/19 Rx Potassium Chloride [K-Dur] 40 meq PO DAILY #30 tab 03/26/19 Rx Sacubitril/Valsartan 49/51 1 tab PO BID #60 tab 03/26/19 Rx [Entresto 49 mg-51 mg Tablet] Spironolactone [Aldactone] 12.5 mg PO DAILY #30 tab 03/26/19 Rx - History PMHx: HFrEF, HTN, Afib PSHx: hernia, ortho, AICD/pacer placement FHx:NC Social: distant hx of chew, currently denies TAD - Review of Systems General: reports: weight/appetite/sleep changes, fatigue. denies: fever/chills , night sweats Eyes: denies: vision changes ENT: denies: nasal congestion, rhinorrhea Respiratory: reports: cough, shortness of breath, exercise intolerance. denies : congestion Cardiovascular: reports: palpitation, edema, orthopnea. denies: chest pain Gastrointestinal: reports: nausea. denies: vomiting, diarrhea, constipation, abdominal pain Genitourinary: denies: incontinence, dysuria Skin: denies: rashes, jaundice Musculoskeletal: denies: pain, tenderness Neurological: denies: numbness, syncope - Vital signs 150/106 pulse 140 on admission - Physical Exam Constitutional: NAD, awake, alert and oriented HEENT: normocephalic and atraumatic, grossly normal vision, grossly normal hearing Neck: trachea midline, no JVD Chest: no-tender to palpation, no lesions Heart: normal S1/S2, pulses present (1+ edema to calf, irregularly irregular rhythm) Lungs: other (rales in lower lung phillips) Abdomen: soft, non-tender Musculoskeletal: normal structure, normal tone Neurological: no focal deficit Skin: no rash/lesions, good turgor Heme/Lymphatic: no unusual bruising or bleeding Psychiatric: normal mood and affect FMR H&P: Results - Labs Result Diagrams: 07/05/19 08:53 07/05/19 08:53 Lab results: WBC 8.1 thou/uL (4.8-10.8) 07/05/19 08:53 Hgb 14.8 g/dL (14.0-18.0) 07/05/19 08:53 Hct 46.9 % (42.0-52.0) 07/05/19 08:53 MCV 97.4 fL (78.0-98.0) 07/05/19 08:53 Plt Count 193 thou/uL (130-400) 07/05/19 08:53 Neutrophils % 75.9 % (42.0-75.0) H 07/05/19 08:53 Sodium 142 mmol/L (136-145) 07/05/19 08:53 Potassium 4.4 mmol/L (3.5-5.1) 07/05/19 08:53 Chloride 106 mmol/L (98-107) 07/05/19 08:53 Carbon Dioxide 26 mmol/L (23-31) 07/05/19 08:53 BUN 21 mg/dL (8.4-25.7) 07/05/19 08:53 Creatinine 1.55 mg/dL (0.7-1.3) H 07/05/19 08:53 Glucose 116 mg/dL (80-115) H 07/05/19 08:53 Calcium 8.9 mg/dL (7.8-10.44) 07/05/19 08:53 Total Bilirubin 1.5 mg/dL (0.2-1.2) H 07/05/19 08:53 AST 27 U/L (5-34) 07/05/19 08:53 ALT 22 U/L (8-55) 07/05/19 08:53 Alkaline Phosphatase 94 U/L (40-110) 07/05/19 08:53 CK-MB (CK-2) 2.8 ng/mL (0-6.6) 07/05/19 08:53 Serum Total Protein 6.6 g/dL (5.8-8.1) 07/05/19 08:53 Albumin 4.1 g/dL (3.4-4.8) 07/05/19 08:53 FMR H&P: A/P - Problem List (1) HFrEF (heart failure with reduced ejection fraction) Current Visit: Yes Status: Acute Code(s): I50.20 - UNSPECIFIED SYSTOLIC ( CONGESTIVE) HEART FAILURE (2) JELLY (acute kidney injury) Current Visit: Yes Status: Acute Code(s): N17.9 - ACUTE KIDNEY FAILURE, UNSPECIFIED (3) Atrial fibrillation with RVR Current Visit: No Status: Chronic Code(s): I48.91 - UNSPECIFIED ATRIAL FIBRILLATION (4) Hypertension Current Visit: No Status: Chronic Code(s): I10 - ESSENTIAL (PRIMARY) HYPERTENSION - Plan Afib w/ RVR - resolved with dilt, hemodynamically stable - restart dig with loading dose - restart NOAC, amio HFrEF exacerbation - dyspnea and edema present on exam - bnp pending, cxr wnl - Echo in 03/25 EF 15-20% - IV lasix now, restart other home meds JELLY - likely elevated from fluid overload - continue to monitor HTN - restart home meds - monitor code: full DVT: eliqius Dispo: monitor on telemetry, restart home meds and treat HF exac. FMR H&P: Upper Level - Plan Date/Time: 07/05/19 1257 I, [], have evaluated this patient and agree with findings/plan as outlined by help desk internship resident. Pertinent changes/additions are listed here.
[2019-07-05 13:05] LABS: Troponin I 0.064 ng/mL (< 0.028)
[2019-07-05 13:24] VITALS: BMI 35.0
[2019-07-05] MEDS: Acetaminophen 325 MG TAB PO PRN ×2 (13:45→21:52)
[2019-07-05 15:47] LABS: Troponin I 0.042 ng/mL (< 0.028)
[2019-07-05] MEDS ORDERED: Carvedilol 6.25 MG TAB PO SCH (17:00)
[2019-07-05] MEDS: Digoxin 0.5 MG/2 ML AMP SLOW IVP SCH (17:46)
[2019-07-05] MEDS: Amiodarone 200 MG TAB PO SCH (21:52)
[2019-07-05] MEDS: Apixaban 5 MG TAB PO SCH (21:52)
[2019-07-05] MEDS: Sacubitril 49 MG/Valsartan 51 MG TABLET PO SCH (21:52)
[2019-07-06] MEDS: Digoxin 0.5 MG/2 ML AMP SLOW IVP SCH (00:44)
[2019-07-06 04:54] LABS: #Eosinphils 0.2 thou/uL (0.0-0.7); #Lymphocytes 1.4 thou/uL (1.20-3.40); #Monocytes 0.5 thou/uL (0.11-0.59); #Neutrophils 4.1 thou/uL (1.40-6.50); %Basophils 0.5 % (0.0-1.0); %Eosinophils 3.8 % (0.0-10.0); %Lymphocytes 21.6 % (21.0-51.0); %Monocytes 8.5 % (0.0-10.0); %Neutrophils 65.6 % (42.0-75.0); Hemoglobin 14.3 g/dL (14.0-18.0); Mean Corpuscular HGB CONC 31.1 g/dL (32.0-36.0); Mean Corpuscular Hemoglobin 30.5 pg (27.0-31.0); Mean Platelet Volume 8.3 fL (7.4-10.4); Platelet Count 175 thou/uL (130-400); RBC Distribution Width 14.3 % (11.5-14.5); Red Blood Cell (RBC) Count 4.69 mill/uL (4.70-6.10); White Blood Cell (WBC) Count 6.3 thou/uL (4.8-10.8)
[2019-07-06 05:16] LABS: ALT (SGPT) 22 U/L (8-55); AST (SGOT) 23 U/L (5-34); Albumin 3.6 g/dL (3.4-4.8); Alkaline Phosphatase 80 U/L (40-110); Anion Gap 12 mmol/L (10-20); BUN (Urea Nitrogen) 14 mg/dL (8.4-25.7); Bilirubin, Total 1.1 mg/dL (0.2-1.2); Calc. Creatinine Clearance 113 mL/min (70-130); Calcium 8.1 mg/dL (7.8-10.44); Carbon Dioxide 24 mmol/L (23-31); Chloride 108 mmol/L (98-107); Estimated GFR-MDRD 77; Globulin 2.5 g/dL (2.4-3.5); Glucose 100 mg/dL (80-115); Potassium 3.6 mmol/L (3.5-5.1); Protein, Total 6.1 g/dL (5.8-8.1); Sodium 140 mmol/L (136-145)
[2019-07-06] MEDS: Furosemide 40 MG TAB PO SCH (06:32)
--- NOTE | 2019-07-06 07:15 | PDOC.FM ---
- Subjective Subjective: pt resting comfortably in bed, denies CP or SOB. feels much improved today - Objective Vital Signs & Weight: Vital Signs (12 hours) Temp Pulse Resp BP Pulse Ox 07/06/19 06:08 61 153/86 H 07/06/19 03:22 97.8 F 75 23 H 151/89 H 95 07/06/19 00:57 65 137/80 07/05/19 21:08 97.4 F L 64 18 154/108 H 97 Weight Weight 103.419 kg I&O: 07/05/19 07/06/19 07/07/19 06:59 06:59 06:59 Intake Total 1000 Output Total 3081 Balance -2080 Result Diagrams: 07/06/19 08:56 07/07/19 07:32 Phys Exam - Physical Examination Constitutional: NAD HEENT: moist MMs Neck: no JVD Respiratory: clear to auscultation bilateral Cardiovascular: RRR, no significant murmur Gastrointestinal: soft Musculoskeletal: pulses present Neurological: moves all 4 limbs Psychiatric: normal affect Skin: no rash Dx/Plan (1) HFrEF (heart failure with reduced ejection fraction) Code(s): I50.20 - UNSPECIFIED SYSTOLIC (CONGESTIVE) HEART FAILURE Status: Acute (2) JELLY (acute kidney injury) Code(s): N17.9 - ACUTE KIDNEY FAILURE, UNSPECIFIED Status: Acute (3) Atrial fibrillation with RVR Code(s): I48.91 - UNSPECIFIED ATRIAL FIBRILLATION Status: Chronic (4) Hypertension Code(s): I10 - ESSENTIAL (PRIMARY) HYPERTENSION Status: Chronic - Plan Plan: Afib w/ RVR - resolved with dilt, hemodynamically stable - continue dig, NOAC, amio - dc dilt HFrEF exacerbation - dyspnea and edema present on exam - bnp elevated, cxr wnl - Echo in 03/25 EF 15-20% - another IV lasix, resume home dose JELLY, improved - likely elevated from fluid overload - continue to monitor HTN - restart home meds - monitor code: full DVT: eliqius Dispo: continue to resume home meds, monitor on tele Addendum - Attending - Attending Attestation Date/Time: 07/08/19 1304 I personally evaluated the patient and discussed the management with Dr. Gamez I agree with the History, Examination, Assessment and Plan documented above with any addition or exceptions noted below.
[2019-07-06] MEDS: Potassium Chloride 20 MEQ TAB PO SCH (09:10)
[2019-07-06] MEDS: Digoxin 0.125 MG TAB PO SCH (09:10)
[2019-07-06] MEDS: Aspirin Chewable 81 MG TAB PO SCH (09:11)
[2019-07-06] MEDS: Sacubitril 49 MG/Valsartan 51 MG TABLET PO SCH ×2 (09:11→21:01)
[2019-07-06] MEDS: Amiodarone 200 MG TAB PO SCH ×2 (09:11→21:01)
[2019-07-06] MEDS: Apixaban 5 MG TAB PO SCH ×2 (09:11→21:01)
[2019-07-06] MEDS: Spironolactone 25 MG TAB PO SCH (09:11)
[2019-07-06 09:19] LABS: Hemoglobin 14.7 g/dL (14.0-18.0); Platelet Count 160 thou/uL (130-400)
--- NOTE | 2019-07-07 07:07 | PDOC.FM ---
- Subjective Subjective: pt resting comfortably in bed, SOB/palpitations improved. denies CP - Objective Vital Signs & Weight: Vital Signs (12 hours) Temp Pulse Resp BP Pulse Ox 07/07/19 03:47 97.5 F L 75 18 147/91 H 07/06/19 20:00 97.6 F 70 18 163/93 H 98 Weight Weight 99.79 kg I&O: 07/06/19 07/07/19 07/08/19 06:59 06:59 06:59 Intake Total 1000 1750 Output Total 3081 5200 Balance -1 -3450 Result Diagrams: 07/06/19 08:56 07/07/19 07:32 Phys Exam - Physical Examination Constitutional: NAD HEENT: moist MMs Neck: no JVD Respiratory: clear to auscultation bilateral Cardiovascular: irregular Musculoskeletal: no edema, pulses present Neurological: moves all 4 limbs Psychiatric: normal affect Skin: no rash Dx/Plan (1) HFrEF (heart failure with reduced ejection fraction) Code(s): I50.20 - UNSPECIFIED SYSTOLIC (CONGESTIVE) HEART FAILURE Status: Acute (2) JELLY (acute kidney injury) Code(s): N17.9 - ACUTE KIDNEY FAILURE, UNSPECIFIED Status: Acute (3) Atrial fibrillation with RVR Code(s): I48.91 - UNSPECIFIED ATRIAL FIBRILLATION Status: Chronic (4) Hypertension Code(s): I10 - ESSENTIAL (PRIMARY) HYPERTENSION Status: Chronic - Plan Plan: Afib w/ RVR - resolved with dilt, hemodynamically stable - continue dig, NOAC, amio - resume coreg - check dig level HFrEF exacerbation - dyspnea and edema present on exam - bnp elevated, cxr wnl - Echo in 03/25 EF 15-20% - home lasix JELLY, improved - likely elevated from fluid overload - continue to monitor HTN - restart home meds - monitor code: full DVT: eliqius Dispo: dc later today with continued stability
[2019-07-07] MEDS ORDERED: Sodium Chloride 0.9% 10 ML ONE (07:58)
[2019-07-07] MEDS ORDERED: Carvedilol 3.125 MG TAB PO SCH (08:00)
[2019-07-07 08:11] LABS: ALT (SGPT) 22 U/L (8-55); AST (SGOT) 27 U/L (5-34); Albumin 3.7 g/dL (3.4-4.8); Alkaline Phosphatase 84 U/L (40-110); Anion Gap 14 mmol/L (10-20); BUN (Urea Nitrogen) 8 mg/dL (8.4-25.7); Bilirubin, Total 1.7 mg/dL (0.2-1.2); Calc. Creatinine Clearance 133 mL/min (70-130); Calcium 8.2 mg/dL (7.8-10.44); Carbon Dioxide 21 mmol/L (23-31); Chloride 108 mmol/L (98-107); Estimated GFR-MDRD Greater than 90; Globulin 2.8 g/dL (2.4-3.5); Glucose 106 mg/dL (80-115); Protein, Total 6.5 g/dL (5.8-8.1); Sodium 139 mmol/L (136-145)
[2019-07-07] MEDS: Furosemide 40 MG TAB PO SCH (08:24)
[2019-07-07] MEDS: Digoxin 0.125 MG TAB PO SCH (08:24)
[2019-07-07] MEDS: Aspirin Chewable 81 MG TAB PO SCH (08:25)
[2019-07-07] MEDS: Potassium Chloride 20 MEQ TAB PO SCH (08:25)
[2019-07-07] MEDS: Amiodarone 200 MG TAB PO SCH (08:25)
[2019-07-07] MEDS: Apixaban 5 MG TAB PO SCH (08:25)
[2019-07-07] MEDS: Sacubitril 49 MG/Valsartan 51 MG TABLET PO SCH (08:25)
[2019-07-07] MEDS: Spironolactone 25 MG TAB PO SCH (08:25)
[2019-07-07 08:55] LABS: Digoxin 0.64 ng/mL (0.8-2.0)
[2019-07-07 13:26] VITALS: BP 135/93; TEMP 97.8
--- NOTE | 2019-07-09 14:21 | DIS ---
DATE OF ADMISSION: 07/05/2019 DATE OF DISCHARGE: 07/07/2019 DISCHARGE ATTENDING: Dr. Valente Marie. CONSULTS: None. RESIDENT: Dr. Jason Gamez. IMAGING STUDIES: Chest x-ray reveals no acute intrathoracic abnormalities. Echocardiogram consistent with prior echocardiogram. Left ventricular ejection fraction visually estimated at 15% to 20%. DISCHARGE MEDICATIONS: 1. Carvedilol 3.125 mg p.o. b.i.d. with meals. 2. Digoxin 0.125 mg p.o. daily. 3. Amiodarone 200 mg p.o. b.i.d. with taper to 100 mg p.o. daily. 4. Eliquis 5 mg p.o. b.i.d. 5. Aspirin 81 mg p.o. daily. 6. Lasix 40 mg p.o. daily. 7. K-Dur 40 mEq p.o. daily. 8. Entresto 1 tablet p.o. b.i.d. 9. Aldactone 12.5 mg p.o. daily. DISCHARGE DIAGNOSIS: Atrial fibrillation with rapid ventricular response. SECONDARY DIAGNOSES: 1. Heart failure with reduced ejection fraction exacerbation. 2. Acute kidney injury. 3. Hypertension. HISTORY OF PRESENT ILLNESS/HOSPITAL COURSE: Mr. Rosario is a 64-year-old male, who presents to the emergency room with dyspnea over the past 2 weeks, acutely worsening today along with palpitations. In the emergency room, he was diagnosed with atrial fibrillation with RVR, quickly terminated with diltiazem, loading dose of digoxin was given. Upon further inquiry, it was found out that Mr. Rosario discontinued taking all of his medications approximately 3 to 4 weeks ago. Since that time, he has noticed swelling, weight gain, and increasing shortness of breath with inability to lie flat, and it was determined that he be admitted to the hospital for treatment of heart failure exacerbation and restarting of his home medications. He was placed on proper loading doses of home medications and tolerated these well. The patient's symptoms improved throughout his hospital stay and was deemed stable for discharge with close followup by his underwriter solicitation director, Dr. Curry. DISCHARGE INSTRUCTIONS: 1. Location: Home. 2. Diet: Heart healthy low-sodium. 3. Activity: As tolerated. 4. Followup: Follow up with Dr. Curry in the next 7 days and follow up with the patient's PCP in the next 3 to 5 days. Job ID: [id number]
== END 2019-07-07 15:50 | disposition home or self-care (01) | DRG 308 ==
LOC: ERS 08:25 → ERHOLD 10:11 → 2NO 13:12
PROVIDERS: ADMIT Family Medicine; ATTEND Family Medicine
DX: I48.91 Unspecified atrial fibrillation (principal); I50.23 Acute on chronic systolic (congestive) heart failure; N17.9 Acute kidney failure, unspecified; Z79.82 Long term (current) use of aspirin; I11.0 Hypertensive heart disease with heart failure; Z95.810 Presence of automatic (implantable) cardiac defibrillator; Z79.899 Other long term (current) drug therapy; Z88.5 Allergy status to narcotic agent; Z98.890 Other specified postprocedural states
CPT/HCPCS: 36415; 71045; 80053; 80162; 82553; 83735; 83880; 84443; 84484; 85025; 93005; 93306; 93798; J1160; J1940; S0028

== ENCOUNTER 2019-12-15 11:42 | Observation (INO) | payer MEDICARE, SELFPAY ==
[2019-12-15 13:20] LABS: #Basophils 0.1 thou/uL (0.0-0.2); #Lymphocytes 1.3 thou/uL (1.20-3.40); #Monocytes 0.8 thou/uL (0.11-0.59); #Neutrophils 5.6 thou/uL (1.40-6.50); %Basophils 1.1 % (0.0-1.0); %Eosinophils 0.5 % (0.0-10.0); %Lymphocytes 16.6 % (21.0-51.0); %Monocytes 10.5 % (0.0-10.0); %Neutrophils 71.3 % (42.0-75.0); Hemoglobin 16.1 g/dL (14.0-18.0); Mean Corpuscular HGB CONC 31.1 g/dL (32.0-36.0); Mean Corpuscular Hemoglobin 29.6 pg (27.0-31.0); Mean Corpuscular Volume 95.2 fL (78.0-98.0); Mean Platelet Volume 9.2 fL (7.4-10.4); Platelet Count 167 thou/uL (130-400); RBC Distribution Width 16.5 % (11.5-14.5); Red Blood Cell (RBC) Count 5.44 mill/uL (4.70-6.10); White Blood Cell (WBC) Count 7.8 thou/uL (4.8-10.8)
[2019-12-15 13:42] LABS: ALT (SGPT) 13 U/L (8-55); AST (SGOT) 21 U/L (5-34); Alkaline Phosphatase 109 U/L (40-110); Anion Gap 15 mmol/L (10-20); BUN (Urea Nitrogen) 17 mg/dL (8.4-25.7); Bilirubin, Total 2.7 mg/dL (0.2-1.2); CK (CPK) 88 U/L (30-200); Calc. Creatinine Clearance 0 mL/min (70-130); Calcium 8.5 mg/dL (7.8-10.44); Carbon Dioxide 26 mmol/L (23-31); Chloride 105 mmol/L (98-107); Estimated GFR-MDRD 58; Globulin 2.7 g/dL (2.4-3.5); Glucose 106 mg/dL (80-115); Lipase 40 U/L (8-78); Potassium 3.7 mmol/L (3.5-5.1); Protein, Total 6.7 g/dL (5.8-8.1); Sodium 142 mmol/L (136-145)
--- NOTE | 2019-12-15 13:54 | RAD ---
PA CHEST: 12/15/19 INDICATIONS: Weakness. COMPARISON: 07/05/19. The lung phillips are clear. No infiltrate or edema. The heart is mildly enlarged with AICD leads again noted. Deformity of the posterior right ribs from old fractures are again noted. IMPRESSION: No acute lung process. POS: AH
[2019-12-15 14:02] LABS: CKMB 3.4 ng/mL (0-6.6)
[2019-12-15] MEDS ORDERED: Aspirin 325 MG TAB ONE (14:07)
[2019-12-15] MEDS ORDERED: Nitroglycerin 2% Ointment 1 INCH/1 GM Packet ONE (14:07)
[2019-12-15] MEDS ORDERED: Furosemide 40 MG/4 ML VIAL ONE (14:07)
[2019-12-15 14:11] LABS: Bilirubin Negative (Negative); Blood, Urine Negative (Negative); Clarity Clear (Clear); Glucose, Urine (Dipstick) Normal (Negative); Leukocyte Negative Leu/uL (Negative); Nitrite Negative (Negative); Protein, Urine (Dipstick) Negative (Neg-Trace); Urobilinogen Normal mg/dL (Less than 2)
[2019-12-15 14:21] LABS: Digoxin 0.15 ng/mL (0.8-2.0)
[2019-12-15] MEDS ORDERED: Carvedilol 6.25 MG TAB PO SCH ×3 (16:45→21:00)
[2019-12-15] MEDS ORDERED: Furosemide 40 MG/4 ML VIAL SLOW IVP SCH (18:15)
--- NOTE | 2019-12-15 18:22 | PDOC.HHP ---
Hospitalist HPI - History of Present Illness shortness of breath for the past three weeks, palpitations History of Present Illness: Mr. Rosario is a 64yo M w/ MHx of HFrEF (15-20%, AICD), persistent atrial fibrillation (on eliquis) presents with progressively worsening shortness of breath. Started gradually 3 weeks ago, associated with orthopnea and PND, palpitations. Endorses adhernece ot medications and increasing dosage of lasix based on mannequin maker input, but also dietary indiscretion on encounter, laying comfortably in bed and endorses improvement in shortness of breath but persistent orthopnea. Denies fever, chills, syncope, presyncope, chest pain or pressure, PND, abdominal pain, diarrhea, heat intolerance, dysuria. ED Course: In the ED, found to have pitting edema, BNP grossly elevated, CXR pulmonary congestion. EKG afib with frequent PVCs. Was admitted to telemetry for further management Hospitalist ROS - Review of Systems Constitutional: denies: fever, chills, sweats, weakness, malaise, other Respiratory: reports: shortness of breath, SOB with excertion. denies: cough, dry, hemoptysis, pleuritic pain, sputum, wheezing, other Cardiovascular: reports: orthopnea, edema. denies: chest pain, palpitations, paroxysmal noc. dyspnea, light headedness, other Gastrointestinal: denies: nausea, vomiting, abdominal pain, diarrhea, constipation, melena, hematochezia, other Genitourinary: denies: dysuria, frequency, incontinence, hematuria, retention, other Neurological: reports: weakness. denies: numbness, incoordination, change in speech All other systems reviewed; all pertinent +/- noted in HPI/Subj - Medication Medications: Active Medications Generic Name Dose Route Start Last Admin Trade Name Freq PRN Reason Stop Dose Admin Carvedilol 6.25 mg 12/15/19 16:45 12/15/19 17:32 Coreg PO 12/15/19 18:45 Not Given NOW [facility] Hospitalist History - Past Medical History Source: patient (PAST MEDICAL HISTORY: 1. Atrial fibrillation with variable rate control, on chronic anticoagulation with Eliquis. 2. Left atrial thrombus. 3. Hypertension. 4. History of medication noncompliance. 5. Hyperlipidemia. PAST SURGICAL HISTORY: 1. Status post left knee surgery. 2. Status post hernia repair. 3. Status post shoulder repair. CURRENT MEDICATIONS: 1. Lasix 40 mg p.o. daily. 2. Lisinopril 40 mg p.o. daily. 3. Enteric-coated aspirin 81 mg p.o. daily. 4. Albuterol 90 mcg inhaled q.i.d. p.r.n. 5. Eliquis 5 mg p.o. b.i.d. 6. Carvedilol 12.5 mg p.o. b.i.d. 7. Digoxin 0.25 mg daily. 8. Diltiazem , unknown dose. 9. Spironolactone 25 mg p.o. daily. ALLERGIES: TO CODEINE. FAMILY HISTORY: Positive for hypertension. SOCIAL HISTORY: The patient is . Resides in the [facility]. 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 Occasional alcohol use. No smoking or illicit drug use.) - Exam Eye: PERRL, anicteric sclera Neck: no JVD Heart: no murmur Heart - other findings: +gallop, irregularly irregular, normal rate Respiratory: rales, wheezes Gastrointestinal: soft, non-tender, non-distended, normal bowel sounds Extremities: 2+ LE edema Psychiatric: normal affect, normal behavior, A&O x 3 Hospitalist Results - Labs Result Diagrams: 12/15/19 13:09 12/15/19 13:09 Lab results: WBC 7.8 thou/uL (4.8-10.8) 12/15/19 13:09 Hgb 16.1 g/dL (14.0-18.0) 12/15/19 13:09 Hct 51.8 % (42.0-52.0) 12/15/19 13:09 MCV 95.2 fL (78.0-98.0) 12/15/19 13:09 Plt Count 167 thou/uL (130-400) 12/15/19 13:09 Neutrophils % 71.3 % (42.0-75.0) 12/15/19 13:09 Sodium 142 mmol/L (136-145) 12/15/19 13:09 Potassium 3.7 mmol/L (3.5-5.1) 12/15/19 13:09 Chloride 105 mmol/L (98-107) 12/15/19 13:09 Carbon Dioxide 26 mmol/L (23-31) 12/15/19 13:09 BUN 17 mg/dL (8.4-25.7) 12/15/19 13:09 Creatinine 1.25 mg/dL (0.7-1.3) 12/15/19 13:09 Glucose 106 mg/dL (80-115) 12/15/19 13:09 Calcium 8.5 mg/dL (7.8-10.44) 12/15/19 13:09 Total Bilirubin 2.7 mg/dL (0.2-1.2) H 12/15/19 13:09 AST 21 U/L (5-34) 12/15/19 13:09 ALT 13 U/L (8-55) 12/15/19 13:09 Alkaline Phosphatase 109 U/L (40-110) 12/15/19 13:09 Creatine Kinase 88 U/L (30-200) 12/15/19 13:09 CK-MB (CK-2) 3.4 ng/mL (0-6.6) 12/15/19 13:09 Troponin I 0.033 ng/mL (< 0.028) H 12/15/19 13:09 B-Natriuretic Peptide 3045.9 pg/mL (0-100) H 12/15/19 13:09 Serum Total Protein 6.7 g/dL (5.8-8.1) 12/15/19 13:09 Albumin 4.0 g/dL (3.4-4.8) 12/15/19 13:09 Lipase 40 U/L (8-78) 12/15/19 13:09 Urine Ketones Negative mg/dL (Negative) 12/15/19 13:40 Urine Blood Negative (Negative) 12/15/19 13:40 Urine Nitrite Negative (Negative) 12/15/19 13:40 Ur Leukocyte Esterase Negative Yuly/uL (Negative) 12/15/19 13:40 - EKG Interpretation EKG: afib with frequent PVCs Hospitalist H&P A/P - Problem (1) Atrial fibrillation with controlled ventricular rate Code(s): I48.91 - UNSPECIFIED ATRIAL FIBRILLATION Status: Acute (2) HFrEF (heart failure with reduced ejection fraction) Code(s): I50.20 - UNSPECIFIED SYSTOLIC (CONGESTIVE) HEART FAILURE Status: Acute - Plan Plan: #Decompensated HFrED class III #frequent PVCs / couplets -mild troponinemia, likey related to decompensated HF; no signs or symptoms c/w ACS -telemetry showing frequent PVC 10-20/minute; occasional couplets -previous reports of PVCs but frequency not logged -decompensation likely multifactorial, dietary indiscretion and frequent PVCs -diuresis; strict I/O -increased coreg from 6.25 to 12.5 bid -interrogate AICD/pacemaker -EP consult #persistent afib -rate controlled -continue eliquis Full code DVT PPx - therapeutic eliquis GI PPx - no Ix ELOS:2-3 midnights
[2019-12-15] MEDS: Amiodarone 200 MG TAB PO SCH (21:14)
[2019-12-15] MEDS: Apixaban 5 MG TAB PO SCH (21:14)
[2019-12-16 05:33] LABS: Carbon Dioxide 25 mmol/L (23-31)
[2019-12-16 06:25] LABS: Anion Gap 15 mmol/L (10-20); BUN (Urea Nitrogen) 16 mg/dL (8.4-25.7); Calc. Creatinine Clearance 94 mL/min (70-130); Calcium 7.9 mg/dL (7.8-10.44); Chloride 104 mmol/L (98-107); Estimated GFR-MDRD 68; Glucose 124 mg/dL (80-115); Potassium 3.1 mmol/L (3.5-5.1); Sodium 140 mmol/L (136-145)
[2019-12-16] MEDS: Furosemide 40 MG/4 ML VIAL SLOW IVP SCH ×2 (06:29→14:02)
[2019-12-16] MEDS: Potassium Chloride 20 MEQ TAB PO SCH ×2 (06:53→11:38)
[2019-12-16] MEDS: Acetaminophen 325 MG TAB PO PRN ×2 (06:53→14:02)
[2019-12-16] MEDS: Apixaban 5 MG TAB PO SCH ×2 (08:57→21:24)
[2019-12-16] MEDS: Carvedilol 6.25 MG TAB PO SCH ×2 (08:57→17:01)
[2019-12-16] MEDS: Amiodarone 200 MG TAB PO SCH ×2 (08:58→21:25)
[2019-12-16] MEDS: Sacubitril 49 MG/Valsartan 51 MG TABLET PO SCH (08:58)
[2019-12-16] MEDS: Digoxin 0.25 MG TAB PO SCH (08:58)
--- NOTE | 2019-12-16 10:37 | PDOC.HOSPP ---
- Subjective Encounter Date: 12/16/19 Encounter Time: 08:00 Subjective: no overnight events. this morning, feeling better after diuresis, breathing and orthopnea improved. Pending EP eval - Objective Vital Signs & Weight: Vital Signs (12 hours) Temp Pulse Resp BP Pulse Ox 12/16/19 08:43 97.6 F 75 18 131/75 96 12/16/19 04:21 98.2 F 78 20 117/76 96 12/15/19 23:13 97.6 F 83 18 119/69 95 Weight Weight 220 lb 9.6 oz I&O: 12/15/19 12/16/19 12/17/19 06:59 06:59 06:59 Intake Total 500 Output Total 2049 Balance -1550 Result Diagrams: 12/15/19 13:09 12/16/19 03:54 Hospitalist ROS - Review of Systems Constitutional: denies: fever, chills, sweats, weakness, malaise, other Respiratory: reports: shortness of breath. denies: cough, dry, hemoptysis, SOB with excertion, pleuritic pain, sputum, wheezing, other Cardiovascular: reports: orthopnea. denies: chest pain, palpitations, paroxysmal noc. dyspnea, edema, light headedness, other Gastrointestinal: denies: nausea, vomiting, abdominal pain, diarrhea, constipation, melena, hematochezia, other - Medication Medications: Active Medications Generic Name Dose Route Start Last Admin Trade Name Freq PRN Reason Stop Dose Admin Acetaminophen 650 mg 12/16/19 06:46 12/16/19 06:53 Tylenol PO 650 mg Q6H PRN Administration Headache/Fever or Pain Amiodarone HCl 200 mg 12/15/19 21:00 12/16/19 08:58 Cordarone PO 200 mg BID HALINA Administration Apixaban 5 mg 12/15/19 21:00 12/16/19 08:57 Eliquis PO 5 mg BID HALINA Administration Carvedilol 12.5 mg 12/16/19 08:00 12/16/19 08:57 Coreg PO 12.5 mg BID-WM HALINA Administration Digoxin 0.25 mg 12/16/19 09:00 12/16/19 08:58 Lanoxin PO 0.25 mg DAILY HALINA Administration Furosemide 40 mg 12/16/19 06:00 12/16/19 06:29 Lasix SLOW IVP 40 mg 0600,1400 HALINA Administration Potassium Chloride 40 meq 12/16/19 07:00 12/16/19 06:53 K-Dur PO 12/16/19 11:01 40 meq Q4H HALINA Administration Sacubitril/Valsartan 1 tab 12/16/19 09:00 12/16/19 08:58 Entresto 49 Mg-51 Mg Tablet PO 1 tab DAILY HALINA Administration - Exam General Appearance: NAD, awake alert Neck: no JVD Heart: no murmur, irregular Respiratory: CTAB, no wheezes, no rales, no ronchi Gastrointestinal: soft, non-tender, non-distended, normal bowel sounds Extremities: 2+ LE edema Extremities - other findings: improved Psychiatric: normal affect, normal behavior, A&O x 3 Hosp A/P (1) Atrial fibrillation with controlled ventricular rate Code(s): I48.91 - UNSPECIFIED ATRIAL FIBRILLATION Status: Acute (2) HFrEF (heart failure with reduced ejection fraction) Code(s): I50.20 - UNSPECIFIED SYSTOLIC (CONGESTIVE) HEART FAILURE Status: Acute - Plan #HFrEF, Class III, decompensated #Frequent PVCs and occasional couplets -(-)1.5L balance overnight, continue diuresis; pending EP eval otherwise unchanged
[2019-12-16 11:51] VITALS: BMI 32.5
--- NOTE | 2019-12-16 16:58 | CON ---
DATE OF CONSULTATION: 12/16/2019 REFERRING PHYSICIANS: Kyrie Curry MD, and Harjeet Bravo MD HISTORY OF PRESENT ILLNESS: I am seeing Mr. Rosario at our [facility] as an electrophysiology universal branch consultant. His problems are: 1. Acute on chronic systolic congestive heart failure with nonischemic cardiomyopathy: a. Reduced LVEF on echo at 15% to 20% in March of 2019 and also in June 2019. Noted severe MR, mild to moderate TR is seen. 2. Longstanding persistent atrial fibrillation: a. Possible remote ablation history, unclear. b. Chronic amiodarone use, stopped due to inefficacy and also history of left atrial appendage thrombus on FELIPE 08/27/2018. 3. Hypertension, hyperlipidemia. 4. Poor compliance with medications. 5. Status post dual-chamber ICD implant on March 24, 2019, with a Medtronic Evera XT DR dual-chamber device with adequate function. ALLERGIES: CODEINE. MEDICATIONS: At home included; 1. Apixaban (Eliquis) 5 mg twice a day. 2. Amiodarone 200 mg twice a day?, the patient is supposed to be stopping this medications. 3. Digoxin one tablet p.o. daily. 4. Valsartan/sacubitril (Entresto) 24.5/25.5 mg one tablet twice a day. 5. Carvedilol 6.25 mg twice a day. 6. Lasix 40 mg daily. The patient is off amiodarone and has some occasional noncompliance with Eliquis medication, missing it once a week. SUBJECTIVE: Mr. Rosario has been experiencing increasing fluid overload, progressive dyspnea, weight gain, typical signs of heart failure exacerbation. He admitted overnight in the ER. Diuresis was initiated. He is noted to be in atrial fibrillation with frequent PVCs on the telemetry with occasional ventricular pacing. I was consulted regarding the presence of ICD for EP management. Currently, he is feeling better. Dyspnea has improved. His orthopnea is improving as well. He is diuresing well. He denies dizziness, loss of consciousness, or ICD discharges. Has not experienced any fever, chills, or cough. Slight headaches overnight. No stomachache, nausea, or vomiting noted. No bleeding issues. No stroke-like symptoms. REVIEW OF SYSTEMS: Rest of his 12-point review of system was otherwise unremarkable. PAST MEDICAL HISTORY: Past history as above. He has chronic longstanding atrial fibrillation, unclear whether he had atrial fibrillation ablation out of the area. 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 Does drink alcohol on occasion. No smoking or drug abuse noted. FAMILY HISTORY: Not contributory. OBJECTIVE: VITAL SIGNS: Blood pressure is 131/75, heart rate 75, respiratory rate is 18, temperature 97.6 degrees Fahrenheit. GENERAL: Alert and oriented man, in no apparent distress. NECK: Supple. Jugular veins not distended. CHEST: Coarse without crackles. HEART: Sounds are irregularly irregular, 1/6 holosystolic murmur is heard. No gallop is appreciated. ABDOMEN: Benign. Bowel sounds positive. EXTREMITIES: Lower extremities without edema, clubbing, or cyanosis. Pulses are adequate. NEUROLOGIC: The patient is nonfocal. MUSCULOSKELETAL: Without joint swelling or deformity. SKIN: Without rash. ICD insertion site is well healed. DIAGNOSTIC DATA: LABORATORY: White cell count 7.8, hemoglobin 16.1, platelet count is 167. Sodium 140, potassium 3.1 this morning, BUN is 16, creatinine 1.09. Troponin-I is 0.033. BNP is 2045. Dig level 0.15. IMAGING: The chest x-ray shows no acute lung process. Interrogation of his ICD reveals Medtronic Evera XT, MRI compatible dual-chamber ICD, longevity 10.4 years, lead parameters are adequate sensing 0.6 mV, fibrillation waves in the atrium and 3.8 mV in the right ventricle, lead impedances are adequate. The patient appears to be in atrial fibrillation with his implant, no ventricular tachyarrhythmias are documented. The OptiVol measurements reveal marked fluid overload ever since beginning of September. EKG was reviewed, revealing atrial fibrillation, narrow QRS, ventricular rate about 105 beats per minute. Occasional PVCs are noted. ASSESSMENT AND PLAN: 1. Acute on chronic congestive heart failure exacerbation, now improving with diuresis, continue. 2. Chronic atrial fibrillation with prior history of left atrial appendage clot, still with limited compliance with Eliquis. I explained the importance of complying with Eliquis and he could be considered for FELIPE and cardioversion in about a month. He will likely need antiarrhythmic suppression at that time. Alternatively, he may be a candidate pulmonary venous isolation ablation, although he is fairly noncompliant and he has not been followed up in our office. I would like to see him back again in a month to discuss these issues. In the meantime, continue Eliquis for now and rate controlling strategies with beta leslye. 3. Dual chamber ICD, adequate function. No recent arrhythmias. Routine monitoring recommended. 4. CHADS-VASc score of 3 with congestive heart failure, hypertension, and age, on Eliquis, again somewhat noncompliant, continue and emphasize compliance. 5. We will see him while inpatient and we will follow up with him in about 4 to 6 weeks once gets discharged. Job ID: [id number] DIANNE
[2019-12-17 04:23] LABS: Anion Gap 10 mmol/L (10-20); BUN (Urea Nitrogen) 16 mg/dL (8.4-25.7); Calc. Creatinine Clearance 85 mL/min (70-130); Calcium 8.3 mg/dL (7.8-10.44); Carbon Dioxide 27 mmol/L (23-31); Chloride 105 mmol/L (98-107); Estimated GFR-MDRD 60; Glucose 156 mg/dL (80-115); Phosphorus 3.2 mg/dL (2.3-4.7); Potassium 3.5 mmol/L (3.5-5.1); Sodium 138 mmol/L (136-145)
[2019-12-17] MEDS: Furosemide 40 MG/4 ML VIAL SLOW IVP SCH (06:18)
[2019-12-17] MEDS: Digoxin 0.25 MG TAB PO SCH (08:39)
[2019-12-17] MEDS: Amiodarone 200 MG TAB PO SCH (08:40)
[2019-12-17] MEDS: Carvedilol 6.25 MG TAB PO SCH ×2 (08:40→16:46)
[2019-12-17] MEDS: Apixaban 5 MG TAB PO SCH (08:40)
[2019-12-17] MEDS: Sacubitril 49 MG/Valsartan 51 MG TABLET PO SCH (08:40)
[2019-12-17] MEDS ORDERED: Furosemide 40 MG/4 ML VIAL SLOW IVP SCH (08:44)
[2019-12-17] MEDS: Potassium Chloride 20 MEQ TAB PO SCH ×2 (10:11→13:44)
--- NOTE | 2019-12-17 10:12 | PDOC.EP ---
- Subjective Date: 12/17/19 Time: 10:11 - Review of Systems Constitutional: denies: chills, fever, malaise, sweats, weakness, other Respiratory: reports: shortness of breath (improving), SOB with excertion. denies: cough, dry, hemoptysis, pleuritic pain, sputum, wheezing, other Cardiology: reports: orthopnea (improving). denies: chest pain, edema, heart racing, light headedness, paroxysmal noc. dyspnea, palpitations, passing out, pleuritic pain, pressure, swelling, other Gastrointestinal: denies: abdominal pain, constipation, diarrhea, hematochezia, melena, nausea, vomitting, other Musculoskeletal: denies: unstable gait, falls, neck pain, shoulder pain, arm pain, hand pain, leg pain, foot pain, other Neurological: denies: headache, vision changes, other - Objective Allergies/Adverse Reactions: Allergies Allergy/AdvReac Type Severity Reaction Status Date / Time codeine Allergy Severe Hives Verified 07/05/19 13:28 Current Medications Acetaminophen (Tylenol) 650 mg PO Q6H PRN PRN Reason: Headache/Fever or Pain Last Admin: 12/16/19 14:02 Dose: 650 mg Amiodarone HCl (Cordarone) 200 mg PO BID [facility] Last Admin: 12/17/19 08:40 Dose: 200 mg Apixaban (Eliquis) 5 mg PO BID [facility] Last Admin: 12/17/19 08:40 Dose: 5 mg Carvedilol (Coreg) 12.5 mg PO BID-[facility] Last Admin: 12/17/19 08:40 Dose: 12.5 mg Digoxin (Lanoxin) 0.25 mg PO DAILY [facility] Last Admin: 12/17/19 08:39 Dose: 0.25 mg Furosemide (Lasix) 20 mg SLOW IVP 0600,1400 [facility] Potassium Chloride (K-Dur) 40 meq PO Q4H [facility] Stop: 12/17/19 12:46 Sacubitril/Valsartan (Entresto 49 Mg-51 Mg Tablet) 1 tab PO DAILY [facility] Last Admin: 12/17/19 08:40 Dose: 1 tab Vital Signs & Weight: Vital Signs Temp Pulse Resp BP Pulse Ox 12/17/19 07:22 96.3 F L 77 20 121/87 97 12/17/19 03:12 97.3 F L 58 L 18 137/88 96 12/17/19 00:05 96.8 F L 63 18 135/79 95 Admit Weight 226 lb 11.2 oz Weight 223 lb I/O: I/O 12/16/19 12/17/19 12/18/19 06:59 06:59 06:59 Intake Total 2424 Output Total 5150 Balance -2726 - Quality Measures CV meds: Eliquis: Yes - Physical Exam General: alert & oriented x3, appears well, no apparent distress HEENT: normocephaly Neck: supple neck, JVD/HJR Cardiology: irregularly irregular Lungs: clear to auscultation, normal breath sounds, no wheezes, no rales Neurology: grossly intact Abdomen: unremarkable, active bowel sounds, soft Extremities: warm Musculoskeletal: no pain - Chadsvasc Risk factors Congestive heart failure: 1 Hypertension: 1 Age 65-74: 1 Risk Score: 3 - Labs Result Diagrams: 12/15/19 13:09 12/17/19 03:19 - EKG Interpretation EKG Method: Telemetry EKG shows: Atrial fibrillation - Problem (1) Acute systolic CHF (congestive heart failure) Code(s): I50.21 - ACUTE SYSTOLIC (CONGESTIVE) HEART FAILURE (2) Atrial fibrillation with RVR Code(s): I48.91 - UNSPECIFIED ATRIAL FIBRILLATION - Assessment/Plan Assessment/Plan: HISTORY OF PRESENT ILLNESS: I am seeing Mr. 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 His problems are: 1. Acute on chronic systolic congestive heart failure with nonischemic cardiomyopathy: a. Reduced LVEF on echo at 15% to 20% in March of 2019 and also in June 2019. Noted severe MR, mild to moderate TR is seen. 2. Longstanding persistent atrial fibrillation: a. Possible remote ablation history, unclear. b. Chronic amiodarone use, stopped due to inefficacy and also history of left atrial appendage thrombus on FELIPE 08/27/2018. 3. Hypertension, hyperlipidemia. 4. Poor compliance with medications. 5. Status post dual-chamber ICD implant on March 24, 2019, with a [employer]onic Evera XT DR dual-chamber device with adequate function. ASSESSMENT AND PLAN: 1. Acute on chronic congestive heart failure exacerbation, now improving with diuresis, continue. 2. Chronic atrial fibrillation with prior history of left atrial appendage clot, still with limited compliance with Eliquis. I explained the importance of complying with Eliquis and he could be considered for FELIPE and cardioversion in about a month. He will likely need antiarrhythmic suppression at that time. Alternatively, he may be a candidate pulmonary venous isolation ablation, although he is fairly noncompliant and he has not been followed up in our office. I would like to see him back again in a month to discuss these issues. In the meantime, continue Eliquis for now and rate controlling strategies with beta leslye. 3. Dual chamber ICD, adequate function. No recent arrhythmias. Routine monitoring recommended. 4. CHADS-VASc score of 3 with congestive heart failure, hypertension, and age, on Eliquis, again somewhat noncompliant, continue and emphasize compliance. 5. We will see him while inpatient and we will follow up with him in about 4 to 6 weeks once gets discharged. 12/17/19: Feeling better with improving rate control amnd diuresis. He is initiated on amiodarone for rate control. Plan to see him in 4 weeks as outpt for poss CV vs PVAI in the future.
[2019-12-17 11:36] VITALS: TEMP 97.9
[2019-12-17 11:43] VITALS: BP 123/81
[2019-12-17] MEDS ORDERED: Furosemide 40 MG TAB PO SCH (16:30)
--- NOTE | 2019-12-19 00:13 | DIS ---
DATE OF ADMISSION: 12/15/2019 DATE OF DISCHARGE: 12/17/2019 HOSPITAL COURSE: Mr. Rosario is a 64-year-old male with a medical history of heart failure with reduced ejection fraction of 15% to 20% and AICD, atrial fibrillation (on Eliquis, but not adherent), who presented with progressive worsening shortness of breath. He was diagnosed with decompensated heart failure due to medication nonadherence. The patient was diuresed and responded promptly. Cardiology was consulted in regard to the PVCs in addition to his atrial fibrillation and deemed them to be infrequent. He was discharged with an Eliquis sample as well as Cardiology appointment in 4 weeks for CVA versus PVAI. On the day of discharge, he was hemodynamically stable, breathing well and saturating in the high 90s on room air. PHYSICAL EXAMINATION: VITAL SIGNS: Blood pressure 123/81, temperature 97.9, pulse 62, respiratory rate 18, saturating 98% on room air. GENERAL: Lying comfortably in bed, in no apparent distress. CARDIAC: No JVD. Irregularly irregular rhythm, rate controlled. No gallops, which is an improvement compared to admission. No rubs. LUNGS: Clear to auscultation bilaterally. No wheezing. No rhonchi. Mild lower field inspiratory rales which have improved compared to the day of admission. GASTROINTESTINAL: Soft, nontender, nondistended. Normal bowel sounds. EXTREMITIES: Lower extremity edema, mid tibial level, bilateral, pitting, equal, improved compared to the day of admission. PSYCHIATRIC: Proper mood and affect. Alert and oriented x3. MEDICATIONS: New medications: Potassium chloride 20 mEq b.i.d. Continued medications: Amiodarone, digoxin, Entresto, carvedilol, and Eliquis. Changed medications: Lasix was changed from 40 mg daily to 40 mg b.i.d. for a week, then change back to once a day. Job ID: [id number]
--- NOTE | 2019-12-25 13:15 | EKG ---
Test Reason : Blood Pressure : / mmHG Vent. Rate : 105 BPM Atrial Rate : 101 BPM P-R Int : 000 ms QRS Dur : 092 ms QT Int : 366 ms P-R-T Axes : 000 060 020 degrees QTc Int : 483 ms Atrial fibrillation with rapid ventricular response with premature ventricular or aberrantly conducte d complexes Septal infarct , age undetermined Abnormal ECG Confirmed by KAYLEN ANTONIO, LUCIUS Hoffman ([id number]), field map editor GUY REY ([id number]) on 12/25/2019 1:14:31 PM Referred By: Confirmed By:LUCIUS ABDULLAHI MD
== END 2019-12-17 16:55 | disposition home or self-care (01) ==
LOC: ERS 11:42 → 2NO 14:23
PROVIDERS: ADMIT Internal Medicine; ATTEND Internal Medicine
DX: I11.0 Hypertensive heart disease with heart failure (principal); I50.23 Acute on chronic systolic (congestive) heart failure; I48.11 Longstanding persistent atrial fibrillation; I42.8 Other cardiomyopathies; E78.5 Hyperlipidemia, unspecified; Z79.01 Long term (current) use of anticoagulants; Z79.899 Other long term (current) drug therapy; Z88.5 Allergy status to narcotic agent; Z95.810 Presence of automatic (implantable) cardiac defibrillator
CPT/HCPCS: 36415; 71045; 80048; 80053; 80162; 81003; 82550; 82553; 83690; 83735; 83880; 84100; 84132; 84443; 84484; 85025; 93005; 93798; 96374; 96376; G0378; J1940

== ENCOUNTER 2021-02-23 12:32 | Day surgery (SDC) | payer MEDICARE ==
[2021-02-22 12:05] VITALS: BMI 34.7
[~2021-02-23 12:32] MED LIST changes: +Iopamidol 370 76% 50 ML VIAL FS ONE; -Prevnar 13-Val Conj/PF 0.5 ML SYRINGE IM ONE
[2021-02-23] MEDS ORDERED: Fentanyl 100 MCG/2 ML VIAL ONE ×2 (12:38→16:08)
[2021-02-23] MEDS ORDERED: CEFAZOLIN 1 GM VIAL ONE (12:49)
[2021-02-23] MEDS ORDERED: Gentamicin 80 MG/2 ML VIAL ONE (12:49)
[2021-02-23] MEDS ORDERED: Lidocaine 1% (PF) 30 ML VIAL ONE (12:50)
[2021-02-23] MEDS ORDERED: Succinylcholine 200 MG/10 ml SYRINGE FS ONE (13:14)
[2021-02-23] MEDS ORDERED: Rocuronium Bromide 10 MG/ML (10ML VIAL) ONE (13:14)
[2021-02-23] MEDS ORDERED: Lidocaine 1% PF 5 ML VIAL ONE (13:14)
[2021-02-23] MEDS ORDERED: Ondansetron PF 4 MG/2 ML Vial ONE (13:14)
[2021-02-23] MEDS ORDERED: PHENYLEPHRINE-NS 100 MCG/ML 10 ML SYRINGE ONE ×2 (13:14→14:23)
[2021-02-23] MEDS ORDERED: SUGAMMADEX SODIUM 200 MG/2 ML VIAL ONE (14:23)
[2021-02-23] MEDS ORDERED: DOPamine 400 MG/D5W 250 ML 250 ML ONE (14:53)
[2021-02-23] MEDS ORDERED: Acetaminophen 500 MG TAB ONE (18:28)
[2021-02-24] MEDS ORDERED: Furosemide 40 MG/4 ML VIAL ONE (10:01)
== END 2021-02-23 19:34 | disposition home or self-care (01) ==
LOC: SDC 12:32
PROVIDERS: ATTEND Internal Medicine Cardiovascular Disease
PROC: 0JPT0PZ Removal of Cardiac Rhythm Related Device from Trunk Subcutaneous Tissue and Fascia, Open Approach (ICD-10-PCS; principal; 2021-02-23)
PROC: 0JH609Z Insertion of Cardiac Resynchronization Defibrillator Pulse Generator into Chest Subcutaneous Tissue and Fascia, Open Approach (ICD-10-PCS; 2021-02-23)
PROC: 02HL3KZ Insertion of Defibrillator Lead into Left Ventricle, Percutaneous Approach (ICD-10-PCS; 2021-02-23)
PROC: 02583ZZ Destruction of Conduction Mechanism, Percutaneous Approach (ICD-10-PCS; 2021-02-23)
PROC: 02K83ZZ Map Conduction Mechanism, Percutaneous Approach (ICD-10-PCS; 2021-02-23)
DX: I11.0 Hypertensive heart disease with heart failure (principal); I50.22 Chronic systolic (congestive) heart failure; I42.8 Other cardiomyopathies; I47.2 Ventricular tachycardia; I48.20 Chronic atrial fibrillation, unspecified; E78.5 Hyperlipidemia, unspecified; Z91.14 Patient's other noncompliance with medication regimen; Z79.01 Long term (current) use of anticoagulants; Z79.899 Other long term (current) drug therapy; Z88.2 Allergy status to sulfonamides; Z88.5 Allergy status to narcotic agent; Z95.810 Presence of automatic (implantable) cardiac defibrillator
CPT/HCPCS: 33224; 33225; 36005; 71045; 75820; 76942; 93650; C1732; 33264; 93005; 93010; C1763; C1882; C1900; J0690; J1265; J1580; J1940; J2001; J2405; J3010; Q9967

== ENCOUNTER 2021-11-14 10:31 | Outpatient (CLI) | payer MEDICARE, OTHER ==
[2021-11-14 12:29] LABS: Hemoglobin 14.8 g/dL (13.5-17.5); Mean Corpuscular HGB CONC 34.3 g/dL (32.0-36.0); Mean Corpuscular Hemoglobin 31.4 pg (27.0-33.0); Mean Corpuscular Volume 91.5 fl (81.2-95.1); Mean Platelet Volume 10.8 fl (7.4-10.4); Platelet Count 158 10x3/uL (150-450); RBC Distribution Width 13.2 % (11.5-14.5); Red Blood Cell (RBC) Count 4.71 10x6/uL (4.32-5.72); White Blood Cell (WBC) Count 7.2 10x3/uL (3.5-10.5)
[2021-11-14 12:47] LABS: Anion Gap 15 mmol/L (10-20); BUN (Urea Nitrogen) 8 mg/dL (8.4-25.7); Calc. Creatinine Clearance 0 mL/min (70-130); Calcium 8.9 mg/dL (7.8-10.44); Carbon Dioxide 25 mmol/L (23-31); Chloride 106 mmol/L (98-107); Glucose 134 mg/dL (80-115); Potassium 4.2 mmol/L (3.5-5.1); Sodium 142 mmol/L (136-145)
[2021-11-14 22:06] LABS: SARS-CoV-2 PCR by NAA Not Detected (NotDetected)
== END 2021-11-14 10:32 | disposition home or self-care (01) ==
LOC: LABBT 10:31
PROVIDERS: ATTEND Neurological Surgery
DX: Z01.812 Encounter for preprocedural laboratory examination (principal); M47.812 Spondylosis without myelopathy or radiculopathy, cervical region; Z20.822 Contact with and (suspected) exposure to COVID-19
CPT/HCPCS: 80048; 85027; U0003; U0005

== ENCOUNTER 2021-11-16 07:32 | Day surgery (SDC) | payer MEDICARE, OTHER ==
[2021-11-14 09:54] VITALS: BMI 34.0
[2021-11-16] MEDS ORDERED: Midazolam HCl 2 mg/2 ml Vial ONE (09:11)
[2021-11-16] MEDS ORDERED: Ketamine 50 MG/ML (10ML VIAL) ONE (09:11)
[2021-11-16] MEDS ORDERED: Lidocaine 1% PF 5 ML VIAL ONE (09:17)
[2021-11-16] MEDS ORDERED: PROPOFOL 200 MG/20 ML VIAL ONE (09:17)
== END 2021-11-16 11:06 | disposition home or self-care (01) ==
LOC: SDC 07:32
PROVIDERS: ATTEND Internal Medicine
PROC: 0DB78ZX Excision of Stomach, Pylorus, Via Natural or Artificial Opening Endoscopic, Diagnostic (ICD-10-PCS; principal; 2021-11-16)
PROC: 0D758ZZ Dilation of Esophagus, Via Natural or Artificial Opening Endoscopic (ICD-10-PCS; 2021-11-16)
PROC: 0DJD8ZZ Inspection of Lower Intestinal Tract, Via Natural or Artificial Opening Endoscopic (ICD-10-PCS; 2021-11-16)
DX: K59.09 Other constipation (principal); K31.89 Other diseases of stomach and duodenum; K21.00 Gastro-esophageal reflux disease with esophagitis, without bleeding; K29.80 Duodenitis without bleeding; R13.10 Dysphagia, unspecified; K64.8 Other hemorrhoids; M19.90 Unspecified osteoarthritis, unspecified site; I11.0 Hypertensive heart disease with heart failure; I50.9 Heart failure, unspecified; Z86.010 Personal history of colon polyps; Z79.01 Long term (current) use of anticoagulants; Z79.899 Other long term (current) drug therapy; Z88.2 Allergy status to sulfonamides; Z88.5 Allergy status to narcotic agent; Z95.810 Presence of automatic (implantable) cardiac defibrillator
CPT/HCPCS: 88305; J2250; J2704

== ENCOUNTER 2021-11-19 06:05 | Day surgery (SDC) | payer MEDICARE, OTHER ==
[2021-11-14 10:34] VITALS: BMI 34.7
[2021-11-19] MEDS ORDERED: ceFAZolin (BATCH) 2 GM/100 ML BAG ONE ×2 (08:53→13:05)
[2021-11-19] MEDS ORDERED: fentaNYL Citrate/PF 100 MCG/2 ML SYRINGE ONE (08:59)
[2021-11-19] MEDS ORDERED: Ketamine 50 MG/ML (10ML VIAL) ONE (09:07)
[2021-11-19] MEDS ORDERED: Ondansetron PF 4 MG/2 ML Vial ONE (09:14)
[2021-11-19] MEDS ORDERED: Rocuronium Bromide 10 MG/ML (10ML VIAL) ONE (09:14)
[2021-11-19] MEDS ORDERED: Lidocaine 1% PF 5 ML VIAL ONE (09:14)
[2021-11-19] MEDS ORDERED: PROPOFOL 200 MG/20 ML VIAL ONE (09:14)
[2021-11-19] MEDS ORDERED: Dexamethasone 20 MG/5 ML VIAL ONE (09:14)
[2021-11-19] MEDS ORDERED: Glycopyrrolate 0.2 MG/ML 5 ML SYRINGE ONE (09:14)
[2021-11-19] MEDS ORDERED: Tamsulosin HCl 0.4 MG CAP ONE (10:58)
[2021-11-19] MEDS ORDERED: Fentanyl 100 MCG/2 ML VIAL ONE (11:28)
[2021-11-19] MEDS ORDERED: hydrALAZINE 20 MG/ML VIAL ONE ×2 (11:41→11:51)
[2021-11-19] MEDS ORDERED: traMADol HCl 50 MG TAB ONE (12:47)
[2021-11-19] MEDS ORDERED: Sodium Chloride 0.9% 0 ML ONE (13:05)
== END 2021-11-19 14:50 | disposition home or self-care (01) ==
LOC: SDC 06:05
PROVIDERS: ATTEND Neurological Surgery
PROC: 0RG20A0 Fusion of 2 or more Cervical Vertebral Joints with Interbody Fusion Device, Anterior Approach, Anterior Column, Open Approach (ICD-10-PCS; principal; 2021-11-19)
DX: M48.02 Spinal stenosis, cervical region (principal); M47.12 Other spondylosis with myelopathy, cervical region; M47.22 Other spondylosis with radiculopathy, cervical region; Z79.01 Long term (current) use of anticoagulants; Z79.899 Other long term (current) drug therapy; Z88.2 Allergy status to sulfonamides; Z88.5 Allergy status to narcotic agent
CPT/HCPCS: 76000; C1713; C1776; J0360; J0690; J1100; J2405; J2704; J3010; J3490

== ENCOUNTER 2021-11-23 21:35 | Emergency (ER) | payer MEDICARE, OTHER ==
[2021-11-23] MEDS ORDERED: Morphine 4 MG/ML VIAL ONE (21:55)
[2021-11-23] MEDS ORDERED: Ondansetron PF 4 MG/2 ML Vial ONE (21:55)
[2021-11-23 22:30] LABS: ALT (SGPT) 10 U/L (8-55); AST (SGOT) 15 U/L (5-34); Albumin 3.8 g/dL (3.4-4.8); Alkaline Phosphatase 72 U/L (40-110); Anion Gap 16 mmol/L (10-20); BUN (Urea Nitrogen) 15 mg/dL (8.4-25.7); Bilirubin, Total 1.4 mg/dL (0.2-1.2); Calc. Creatinine Clearance 0 mL/min (70-130); Calcium 8.9 mg/dL (7.8-10.44); Carbon Dioxide 22 mmol/L (23-31); Chloride 106 mmol/L (98-107); Globulin 2.5 g/dL (2.4-3.5); Glucose 125 mg/dL (80-115); Potassium 3.8 mmol/L (3.5-5.1); Protein, Total 6.3 g/dL (5.8-8.1); Sodium 140 mmol/L (136-145)
[2021-11-23 22:44] LABS: #Eosinphils 0.3 thou/uL (0.0-0.7); #Lymphocytes 1.6 thou/uL (1.20-3.40); #Neutrophils 6.2 thou/uL (1.40-6.50); %Basophils 0.2 % (0.0-1.0); %Eosinophils 2.8 % (0.0-10.0); %Lymphocytes 17.8 % (21.0-51.0); %Monocytes 11.2 % (0.0-10.0); Hemoglobin 15.2 g/dL (14.0-18.0); Mean Corpuscular HGB CONC 33.6 g/dL (32.0-36.0); Mean Corpuscular Volume 95.4 fL (78.0-98.0); Mean Platelet Volume 10.6 fL (7.4-10.4); Platelet Count 162 thou/uL (130-400); Platelet Morphology Comment PLT clumps seen-ADEQ; RBC Distribution Width 12.6 % (11.5-14.5); Red Blood Cell (RBC) Count 4.74 mill/uL (4.70-6.10); White Blood Cell (WBC) Count 9.1 thou/uL (4.8-10.8)
== END 2021-11-24 01:16 | disposition home or self-care (01) ==
LOC: ERS 21:35
DX: R13.10 Dysphagia, unspecified (principal); I11.0 Hypertensive heart disease with heart failure; I50.9 Heart failure, unspecified; I48.91 Unspecified atrial fibrillation; E78.5 Hyperlipidemia, unspecified; Z79.01 Long term (current) use of anticoagulants; Z79.899 Other long term (current) drug therapy
CPT/HCPCS: 36415; 71045; 80053; 83880; 84484; 85025; 96374; 96375; J2270; J2405

== ENCOUNTER 2022-01-08 10:29 | Outpatient (CLI) | payer MEDICARE, OTHER ==
[2022-01-08 11:59] LABS: Hemoglobin 15.2 g/dL (13.5-17.5); Mean Corpuscular HGB CONC 34.8 g/dL (32.0-36.0); Mean Corpuscular Hemoglobin 32.2 pg (27.0-33.0); Mean Corpuscular Volume 92.6 fl (81.2-95.1); Mean Platelet Volume 11.1 fl (7.4-10.4); Red Blood Cell (RBC) Count 4.72 10x6/uL (4.32-5.72); White Blood Cell (WBC) Count 9.2 10x3/uL (3.5-10.5)
[2022-01-08 12:03] LABS: Platelet Count 190 10x3/uL (150-450)
[2022-01-08 12:05] LABS: Anion Gap 16 mmol/L (10-20); BUN (Urea Nitrogen) 7 mg/dL (8.4-25.7); Calc. Creatinine Clearance 0 mL/min (70-130); Calcium 9.5 mg/dL (7.8-10.44); Carbon Dioxide 24 mmol/L (23-31); Chloride 104 mmol/L (98-107); Estimated GFR 94; Glucose 170 mg/dL (80-115); Sodium 140 mmol/L (136-145)
== END 2022-01-08 10:30 | disposition home or self-care (01) ==
LOC: LABBT 10:29
PROVIDERS: ATTEND Neurological Surgery
DX: Z01.812 Encounter for preprocedural laboratory examination (principal); M54.16 Radiculopathy, lumbar region; Z20.822 Contact with and (suspected) exposure to COVID-19
CPT/HCPCS: 80048; 85027; 87811

== ENCOUNTER 2022-01-11 05:22 | Day surgery (SDC) | payer MEDICARE, OTHER ==
[2022-01-10 10:24] VITALS: BMI 34.7
[2022-01-11] MEDS ORDERED: Bupivacaine PF 0.5% 30 ML VIAL ONE (06:09)
[2022-01-11] MEDS ORDERED: Thrombin 5000 UNITS/5 ML VIAL ONE (06:09)
[2022-01-11] MEDS ORDERED: EPINEPHrine 1 MG/ML AMP ONE (06:09)
[2022-01-11] MEDS ORDERED: Ketamine 50 MG/ML (10ML VIAL) ONE (06:42)
[2022-01-11] MEDS ORDERED: fentaNYL Citrate/PF 100 MCG/2 ML SYRINGE ONE (06:42)
[2022-01-11] MEDS ORDERED: CEFAZOLIN 2 GM VIAL ONE ×2 (06:52→10:55)
[2022-01-11] MEDS ORDERED: Sodium Chloride 0.9% 100 ML ONE ×2 (06:52→10:54)
[2022-01-11] MEDS ORDERED: Succinylcholine 200 MG/10 ml SYRINGE FS ONE (07:03)
[2022-01-11] MEDS ORDERED: Rocuronium Bromide 10 MG/ML (10ML VIAL) ONE (07:03)
[2022-01-11] MEDS ORDERED: PROPOFOL 200 MG/20 ML VIAL ONE (07:03)
[2022-01-11] MEDS ORDERED: Ondansetron PF 4 MG/2 ML Vial ONE (07:03)
[2022-01-11] MEDS ORDERED: Phenylephrine 10 MG/ML VIAL ONE (07:03)
[2022-01-11] MEDS ORDERED: Dexamethasone 20 MG/5 ML VIAL ONE (07:03)
[2022-01-11] MEDS ORDERED: Lidocaine 1% PF 5 ML VIAL ONE (07:03)
[2022-01-11] MEDS ORDERED: PHENYLEPHRINE-NS 100 MCG/ML 10 ML SYRINGE ONE (07:26)
[2022-01-11] MEDS ORDERED: SUGAMMADEX SODIUM 200 MG/2 ML VIAL ONE ×2 (08:07→08:08)
[2022-01-11] MEDS ORDERED: Fentanyl 100 MCG/2 ML VIAL ONE (09:06)
[2022-01-11] MEDS ORDERED: Cyclobenzaprine 10 MG TAB ONE (09:23)
[2022-01-11] MEDS ORDERED: Labetalol HCl 100 MG/20 ML VIAL ONE (09:36)
[2022-01-11] MEDS ORDERED: Tamsulosin HCl 0.4 MG CAP ONE (10:13)
[2022-01-11] MEDS ORDERED: CEFAZOLIN 1 GM VIAL ONE (10:54)
[2022-01-11] MEDS ORDERED: traMADol HCl 50 MG TAB ONE (11:49)
== END 2022-01-11 13:00 | disposition home or self-care (01) ==
LOC: SDC 05:22
PROVIDERS: ATTEND Neurological Surgery
PROC: 01NB0ZZ Release Lumbar Nerve, Open Approach (ICD-10-PCS; principal; 2022-01-11)
DX: M54.16 Radiculopathy, lumbar region (principal); M54.12 Radiculopathy, cervical region; I11.9 Hypertensive heart disease without heart failure; Z79.899 Other long term (current) drug therapy; Z88.2 Allergy status to sulfonamides; Z88.5 Allergy status to narcotic agent; Z87.891 Personal history of nicotine dependence
CPT/HCPCS: 76000; J0171; J0690; J1100; J2370; J2405; J2704; J3010; J3490; S0020

== ENCOUNTER 2025-05-03 12:52 | Emergency (ER) | payer MEDICARE, OTHER ==
[~2025-05-03 12:52] MED LIST changes: -Iopamidol 370 76% 50 ML VIAL FS ONE; +Iopamidol-370 76% 500 ML MDV (1 ML CHARGE) ONE
[2025-05-03 14:30] LABS: #Basophils 0.05 10x3/uL (0.0-0.2); #Eosinophils 0.06 10x3/uL (0.0-0.7); #Monocytes 0.73 10x3/uL (0.11-0.59); #Neutrophils 8.18 10x3/uL (1.40-6.50); %Basophils 0.5 % (0.0-1.0); %Eosinophils 0.6 % (0.0-10.0); %Lymphocytes 11.8 % (21.0-51.0); %Monocytes 7.1 % (0.0-10.0); %Neutrophils 79.6 % (42.0-75.0); Hematocrit 49.0 % (42.0-52.0); Hemoglobin 16.5 g/dL (14.0-18.0); Mean Corpuscular Hemoglobin 30.1 pg (27.0-31.0); Mean Corpuscular Volume 89.4 fL (78.0-98.0); Platelet Count 248 10x3/uL (130-400); Red Blood Cell (RBC) Count 5.48 mill/uL (4.70-6.10); White Blood Cell (WBC) Count 10.27 10x3/uL (4.8-10.8)
[2025-05-03 14:47] LABS: ALT (SGPT) 40 U/L (Less than 45); AST (SGOT) 32 U/L (11-34); Albumin 4.4 g/dL (3.1-4.5); Alkaline Phosphatase 73 U/L (40-110); Anion Gap 18 mmol/L (10-20); BUN (Urea Nitrogen) 19 mg/dL (8.4-25.7); Bilirubin, Total 1.3 mg/dL (0.3-1.2); Calc. Creatinine Clearance 0 mL/min (70-130); Calcium 9.7 mg/dL (7.8-10.44); Carbon Dioxide 20 mmol/L (23-31); Chloride 107 mmol/L (98-107); Globulin 3.1 g/dL (2.4-3.5); Glucose 157 mg/dL (83-110); Potassium 3.9 mmol/L (3.5-5.1); Sodium 141 mmol/L (136-145)
[2025-05-03] MEDS ORDERED: Droperidol 5 MG/2 ML VIAL ONE (16:34)
[2025-05-03] MEDS ORDERED: Ketorolac Tromethamine 30 MG (1 mL) VIAL ONE (18:04)
== END 2025-05-03 18:30 | disposition home or self-care (01) ==
LOC: ERS 12:52
DX: K40.20 Bilateral inguinal hernia, without obstruction or gangrene, not specified as recurrent (principal); R51.9 Headache, unspecified; I77.1 Stricture of artery; I11.0 Hypertensive heart disease with heart failure; I50.9 Heart failure, unspecified; E78.5 Hyperlipidemia, unspecified; I48.91 Unspecified atrial fibrillation
CPT/HCPCS: 70450; 71045; 71275; 74177; 80053; 83880; 84484; 85025; 93005; 96374; 96375; 99285; J1790; J1885; Q9967; 36415